=== PATIENT | male | born 1970 | race Caucasian/White ===

== ENCOUNTER → 2017-03-28 | Outpatient (CLI) | payer MEDICAID, SELFPAY | PROVIDERS: Family Provider Family Medicine; Visit Provider Internal Medicine | DX: R06.09 Other forms of dyspnea (principal) | CPT/HCPCS: 71020; 94060; 94620; 94640; 94727; 94729 ==

== ENCOUNTER → 2017-04-28 12:34 | Outpatient (CLI) | payer MEDICAID, SELFPAY ==
[2017-04-28 22:02] LABS: Alanine Aminotransferase 41 U/L (12-78); Albumin Level 4.5 gm/dL (3.4-5.0); Albumin/Globulin Ratio 1.6 (1.1-1.8); Alkaline Phosphatase 96 U/L (46-116); Anion Gap 17.1 mEq/L (5-15); Aspartate Amino Transferase 28 U/L (15-37); Blood Urea Nitrogen 21 mg/dL (7-18); Calcium 9.2 mg/dL (8.5-10.1); Carbon Dioxide 24 mmol/L (21.0-32.0); Chloride 102 mmol/L (98-107); Chol/HDL Ratio 3.9 (1-3.5); Cholesterol 112 mg/dL (140-200); Creatinine,Serum 1.12 mg/dL (0.70-1.30); Estimated Glomerular Filt Rate 70 ml/min (>60); GFR (African American) 85 ML/MIN (>60); Globulin 2.9 gm/dl (1.3-3.2); Glucose 134 mg/dL (74-106); HDL Cholesterol 29 mg/dL (27-67); LDL Cholesterol 43 mg/dL (0-130); Potassium 5.1 mmoL/L (3.5-5.1); Sodium 138 mmol/L (136-145); Total Protein,Serum 7.4 gm/dL (6.4-8.2); Triglycerides 202 mg/dL (30-200); VLDL Cholesterol 40 mg/dL (0-40)
== END ==
PROVIDERS: PCP Family Medicine; Visit Provider Physician Assistant
DX: E78.5 Hyperlipidemia, unspecified (principal); I25.10 Atherosclerotic heart disease of native coronary artery without angina pectoris
CPT/HCPCS: 36415; 80053; 80061

== ENCOUNTER → 2017-05-16 12:44 | Outpatient (POV) | payer MEDICAID, SELFPAY | PROVIDERS: Family Provider Family Medicine; PCP Family Medicine; Visit Provider Internal Medicine | DX: Z00.00 Encounter for general adult medical examination without abnormal findings (principal) ==

== ENCOUNTER → 2017-07-28 09:49 | Outpatient (CLI) | payer MEDICAID, SELFPAY ==
--- NOTE | 2017-07-28 09:54 | MR_ITS ---
MR shoulder LT wo con Ordering Physician: Pipe Herr MD Patient Age: 46 years: Male HISTORY: ITS.REASON: COMPLETE TEAR OF LEFT ROTATOR CUFF Unable to raise arm TECHNIQUE: Without definable multisequence imaging on 1.5 Mili MRI. COMPARISON : Plain films from 10/30/2013 right shoulder FINDINGS . No full-thickness rotator cuff tear evident. Certainly No tendon retraction No significant fluid at subdeltoid subacromial bursa to suggest underlying tiny pinhole RCT either. Supraspinatus Tendon.: Minimal increased signal and critical zone may reflect mild tendinopathy. No definitive tear Acromion with neutral course as extends laterally, but there is mild spurring and enthesopathy I believe beneath the tip of acromion, with narrowing of the subacromial space measuring 5 mm here beneath the tip of acromion Infraspinatus Tendon: Distended appears intact with only minor signal changes at its inferior aspect which could reflect a minor tendinopathy here. Unimpressive. Subscapularis tendon intact. Unremarkable. Biceps tendon appears normal although there is some minimal fluid surrounding the tendon inferior to the bicipital groove..No significant joint effusion to correlate Osseous glenoid intact. Small sclerotic bone island of believe at the inferior aspect of the glenoid neck not of significance. Survey images of anterior and posterior glenoid labrum show no discrete abnormalities. AC joint with only very minor arthropathy suggested . IMPRESSION---------\ 1. no rotator cuff tear] 2. Perhaps mild tendinopathy at the bursal aspect of supraspinatus tendon and possibly infraspinatus 3. There is narrowed subacromial space beneath the acromion which could contribute to impingement symptoms 4. Slight increased fluid along the biceps tendon could reflect some minor inflammation here possible mild & biceps tendinopathy.. Biceps Tendon itself however appears normal with no tear or disruption
== END ==
PROVIDERS: Family Provider Family Medicine; PCP Family Medicine; Visit Provider Family Medicine
DX: M75.122 Complete rotator cuff tear or rupture of left shoulder, not specified as traumatic (principal)
CPT/HCPCS: 73221

== ENCOUNTER → 2017-08-14 07:20 | Outpatient (CLI) | payer MEDICAID, SELFPAY ==
--- NOTE | 2017-08-14 07:28 | NM_ITS ---
CARDIOLITE SPECT MYOCARDIAL PERFUSION SCAN, REST AND STRESS: EXERCISE STRESS [facility] REVIEW QGS EF AND WALL MOTION EVALUATION: QPS - PERFUSION EVALUATION HISTORY: CAD, ANGINA DOSE: 10.06 mCi technetium 99m mibi intravenously at rest followed by 31.2 mCi technetium 99m mibi following the intravenous ministration of 0.4 mg of Lexiscan. Resting blood pressure is 117/71. Stress blood pressure 129/75. FINDINGS: Ejection fraction is calculated to be 59. Uniform myocardial activity at both stress and rest gated images calculated ejection fraction of 59% with normal wall motion IMPRESSION: No scintigraphic evidence of Lexiscan-induced myocardial ischemia. Normal ejection fraction normal wall motion
--- NOTE | 2017-08-14 08:50 | HMH.ITSHM ---
GABAPENTIN CYCLOBEZAPN GLYBICIDE JARDIANCE EZETIMIBE METFORMIN ISOSORB LEVOTHYROXINE ASPIRIN PLAVIX PANTOPRAZOLE BISOPRLOL LISINOPRIL ALBETEROL CHANTIX PERCOCET
== END ==
PROVIDERS: Family Provider Family Medicine; PCP Family Medicine; Visit Provider Physician Assistant
DX: R07.9 Chest pain, unspecified (principal); I25.10 Atherosclerotic heart disease of native coronary artery without angina pectoris
CPT/HCPCS: 78452; 93017; A9502; J2785

== ENCOUNTER → 2017-11-21 13:44 | Outpatient (CLI) | payer MEDICAID, SELFPAY ==
--- NOTE | 2017-11-21 | CI_ITS ---
Cerebrovascular Exam Indications: 785.9 Bruit. IMPRESSIONS 1. The bilateral subclavian arteries reveal no evidence of significant stenosis. 2. Study suggests less than 20% stenosis involving the right internal carotid artery. 3. Study suggests 20-49% stenosis involving the left internal carotid artery. No change from the study of 26-Oct-2016. History: Risk factors: Current tobacco use. Hypertension. Hyperlipidemia. Carotid duplex study. Complete study and Doppler flow study including spectral analysis, color and salguero scale imaging. Height: Height: 172.7cm. Height: 68in. Weight: Weight: 88.5kg. Weight: 194.6lb. Body mass index: BMI: 29.6kg/m^2. Body surface area: BSA: 2.08m^2. Location: Vascular laboratory. Patient status: Outpatient. Tables: Arterial flow: + +--------+--------+ Location V sys V ed + +--------+--------+ Right CCA - proximal 77.8cm/s 18.1cm/s + +--------+--------+ Right CCA - distal 78.6cm/s 22cm/s + +--------+--------+ Right ECA 93.5cm/s -------- + +--------+--------+ Right ICA - proximal 91.9cm/s 31.4cm/s + +--------+--------+ Right ICA - mid 80.1cm/s 28.3cm/s + +--------+--------+ Right ICA - distal 73.9cm/s 27.5cm/s + +--------+--------+ Right vertebral 40.1cm/s -------- + +--------+--------+ Left CCA - proximal 98.2cm/s 26.7cm/s + +--------+--------+ Left CCA - distal 103cm/s 36.9cm/s + +--------+--------+ Left ECA 107cm/s -------- + +--------+--------+ Left ICA - proximal 105cm/s 40.1cm/s + +--------+--------+ Left ICA - mid 104cm/s 33.8cm/s + +--------+--------+ Left ICA - distal 84.1cm/s 33.8cm/s + +--------+--------+ Left vertebral 46.4cm/s -------- + +--------+--------+ Velocity ratios: + + + + + + Right, V sys Right, V ed Left, V sys Left, V ed + + + + + + Max ICA/dist CCA 1.17 1.43 1.02 1.09 + + + + + + (Report amended ) Electronically signed by: Maximilian Bowman [id number]
== END ==
PROVIDERS: Family Provider Family Medicine; PCP Family Medicine; Visit Provider Physician Assistant
DX: I65.23 Occlusion and stenosis of bilateral carotid arteries (principal); I25.10 Atherosclerotic heart disease of native coronary artery without angina pectoris; I10 Essential (primary) hypertension
CPT/HCPCS: 93880

== ENCOUNTER 2019-04-27 21:05 | Observation (INO) ==
--- NOTE | 2019-04-27 21:08 | Emergency Department Note ---
ED Disposition Clinical Impression: Unstable angina Disposition: Admitted as Observation Condition on Discharge: Good - Critical Care Critical Care Time: No Attestation: On , the high probability of a clinically significant, sudden or life threatening deterioration of the following system(s) required my full and direct attention, intervention and personal management. The time I documented below is in addition to time spent performing reported procedures but includes the following listed in this critical care notation. Medical Decision Making - [place] Inquiry Pt receiving controlled substance: No Vital Signs: 04/27/19 21:10 04/27/19 21:32 Temperature 98.2 F Temperature Source Oral Pulse Rate [Right] 94 H 90 Respiratory Rate 18 12 Blood Pressure [Right Arm] 133/86 117/80 Blood Pressure Mean [Right Arm] 101 92 Blood Pressure Source [Right Arm] Automatic Cuff Blood Pressure Position [Right Arm] Supine 02 Sat by Pulse Oximetry 96 98 Oxygen Delivery Method Room Air Room Air - Lab Data Lab Results 04/27/19 21:05: WBC 12.1 H, RBC 5.75, Hgb 15.7, Hct 49.0, MCV 85.2, MCH 27.3, MCHC 32.0, RDW 13.3, Plt Count 255, MPV 8.8, Neut % (Auto) 65.9, Lymph % (Auto) 22.3, [place] % (Auto) 4.9, Eos % (Auto) 5.7, Baso % (Auto) 1.2, Neut # (Auto) 7.9 H, Lymph # (Auto) 2.7, [place] # (Auto) 0.6, Eos # (Auto) 0.7 H, Baso # (Auto) 0.2 04/27/19 21:05: Sodium 138, Potassium 4.7, Chloride 100, Carbon Dioxide 26, Anion Gap 16.7 H, BUN 17, Creatinine 1.19, Estimated Creat Clear 84, Estimated GFR 65, Est GFR ( Amer) 79, Glucose 176 H, Calcium 9.6, Troponin I < 0.02 Result diagrams: 04/27/19 21:05 04/27/19 21:05 Orders (Tests/Meds): ED MEDICATIONS Generic Name Dose Route Start Last Admin Trade Name Freq PRN Reason Stop Dose Admin Nitroglycerin 0.4 mg 04/27/19 21:07 04/27/19 21:31 Nitrostat 0.4mg Sl Tablet SL 05/27/19 21:06 1 tab Q5MINP PRN Administration Chest Pain Discontinued Medications Generic Name Dose Route Start Last Admin Trade Name Freq PRN Reason Stop Dose Admin Aspirin 243 mg 04/27/19 21:07 04/27/19 21:31 Aspirin 81mg Chewable Tablet PO 04/27/19 21:08 243 mg ONCE ONE Administration Nitroglycerin 1 gm 04/27/19 22:49 04/27/19 22:51 Nitroglycerin 1 Inch Oint Udp TD 04/27/19 22:50 1 gm ONCE ONE Administration ORDERS Category Date Time Status XR chest 2V Stat Exams 04/27/19 21:07 Taken Troponin I Q3H Lab 04/28/19 00:15 Ordered Troponin I Q3H Lab 04/28/19 03:15 Ordered - Radiology Data #1 Image(s): Chest Image Reviewed: Yes I reviewed the patient's radiology image Preliminary Findings: Normal/NAD - ECG Data Tracing #1 EKG interpreted by Brandon Harris MD: Rhythm: sinus Rate: 87 Taft: normal Ectopy: none Conduction: normal ST Segment Changes: none T Wave Changes: none Q Waves: none No evidence of acute ischemia or injury Normal electrocardiogram - Physician Consults Physician Consulted: Jayde Time: 22:35 Reason -: Cardiology Eval/Care Comment/Response: Recommends admission Additional Consult: Dr. Reynaldo louise [facility] [place] Time: 22:53 Reason -: Admission Comment/Response: Agrees to admit the patient to the hospital. We discussed the patient's clinical information, including history, exam, laboratory and radiology results and ED course. Per hospital procedure, I will write temporary bridge inpatient orders on the patient. Specific orders requested by the admitting physician: Serial cardiac enzymes Medical Decision Narrative: prior lexiscan stress: FINDINGS: Ejection fraction is calculated to be 59. Uniform myocardial activity at both stress and rest gated images calculated ejection fraction of 59% with normal wall motion IMPRESSION: No scintigraphic evidence of Lexiscan-induced myocardial ischemia. Normal ejection fraction normal wall motion Dictated By: Eddie Donohue MD Signed By: <Electronically signed by Eddie Donohue MD in OV> 08/16/17 1109 General Adult HPI - General Stated complaint: Chest Pain Time Seen by Provider: 04/27/19 21:49 - History of Present Illness HPI narrative: Complains of episodic chest pain for 1 week. Says that he has had a pressure sensation in his chest that usually lasts about 30 minutes. He had it on Monday, Monday, and Monday, but not Monday, Monday, or . He had an episode yesterday and today. Associated with shortness of breath, nausea, diaphoresis and fatigue. Currently says he is discomfort free, although he had some mild pain on arrival which is now gone. He says that he had multiple cardiac stents placed at [facility] about 5 years ago. Review of records shows that he had a non-ST elevation [place] and three-vessel cardiac disease at that time, 2014. He thinks he had a repeat heart cath a couple of years ago at [facility]. He is a smoker. He has diabetes and hyperlipidemia but denies hypertension. He says he is compliant with his medications. - Related Data Home Medications Medication Instructions Recorded Confirmed Clopidogrel Bisulfate [Plavix 75mg 75 mg PO DAILY 04/27/19 04/27/19 Tab] Cyclobenzaprine HCl 10 mg PO HS 04/27/19 04/27/19 [Cyclobenzaprine 10mg Tab] Duloxetine HCl 30 mg PO HS 04/27/19 04/27/19 Empagliflozin [Jardiance] 10 mg PO HS 04/27/19 04/27/19 Ezetimibe 10 mg PO DAILY 04/27/19 04/27/19 Gabapentin 800 mg PO TID 04/27/19 04/27/19 Isosorbide Mononitrate [Isosorbide 120 mg PO DAILY 04/27/19 04/27/19 Mononitrate ER] Levothyroxine Sodium 125 mcg PO DAILY 04/27/19 04/27/19 [Levothyroxine 125mcg (0.125mg) Tab] Metformin HCl [Metformin 1000mg 1,000 mg PO BID 04/27/19 04/27/19 Tablets] Oxycodone HCl/Acetaminophen 1 tab PO QID 04/27/19 04/27/19 [Percocet 10-325 mg Tablet] Pantoprazole Sodium [Protonix 40mg 40 mg PO DAILY 04/27/19 04/27/19 tablet] Rosuvastatin Calcium 40 mg PO HS 04/27/19 04/27/19 bisoproloL fumarate [Bisoprolol 5 mg PO DAILY 04/27/19 04/27/19 Fumarate] glyBURIDE [Diabeta 5mg tablet] 5 mg PO BID 04/27/19 04/27/19 lisinopriL [Lisinopril 2.5mg Tab] 2.5 mg PO HS 04/27/19 04/27/19 Allergies Allergy/AdvReac Type Severity Reaction Status Date / Time No Known Allergies Allergy Unverified 03/21/17 14:27 [facility] History - Hepatitis A Screen Attestation statement:: This patient has been screened for Hepatitis A risk factors. I have reviewed the patient's past medical history: Yes ROS Obtained: Yes All systems reviewed & no additional complaints - Constitutional Constitutional: Reports fatigue, Denies fever(s) - Cardiovascular Cardiovascular: Reports chest pain, Reports diaphoresis - Respiratory Respiratory: Yes dyspnea - Gastrointestinal Gastrointestingal: Reports: nausea Physical Exam - General General appearance: alert, in no apparent distress - Head Head exam: atraumatic, normocephalic - Eye Eye exam: Present: normal appearance, EOMI - ENT ENT exam: Present: mucous membranes moist - Neck Neck exam: Present: normal inspection, trachea midline - Chest Chest inspection: Present: normal inspection, symmetric chest wall rise - Respiratory Respiratory exam: Present: normal lung sounds bilaterally. Absent: respiratory distress - Cardiovascular Cardiovascular exam: Present: regular rate, normal rhythm, normal heart sounds - Abdominal Exam Abdominal exam: Present: soft, distention, tenderness. Absent: normal bowel sounds - Extremities Exam Extremities exam: Present: normal inspection, other (Normal peripheral pulses). Absent: pedal edema, calf tenderness - Neurological Exam Neurological exam: Present: alert, oriented X3 - Psychiatric Psychiatric exam: Present: normal affect, normal mood - Skin Skin exam: Present: warm, dry
[2019-04-27 21:29] LABS: Basophils # 0.2 K/mm3 (0-0.2); Basophils % 1.2 % (0.1-2.0); Eosinophils # 0.7 K/mm3 (0.0-0.4); Eosinophils % 5.7 % (0.1-12.0); Hemoglobin 15.7 g/dL (14.1-18.0); Lymphocytes # 2.7 K/mm3 (0.7-4.5); Lymphocytes % 22.3 % (10-50); Mean Corpuscular Volume 85.2 fl (80-94); Mean Platelet Volume 8.8 fl (7.4-10.4); Monocytes # 0.6 K/mm3 (0.1-1.0); Monocytes % 4.9 % (1.7-9.3); Neutrophils # 7.9 K/mm3 (1.8-7.8); Neutrophils % 65.9 % (37.0-80.0); Platelet Count 255 K/mm3 (142-424); Red Blood Count 5.75 M/mm3 (4.60-6.20); Red Cell Distribution Width 13.3 % (11.5-17.5); White Blood Count 12.1 K/mm3 (4.8-10.8)
[2019-04-27 21:40] LABS: Blood Urea Nitrogen 17 mg/dL (7-18); Calcium 9.6 mg/dL (8.5-10.1); Carbon Dioxide 26 mmol/L (21.0-32.0); Chloride 100 mmol/L (98-107); Glucose 176 mg/dL (74-106)
[2019-04-27 21:50] LABS: Anion Gap 16.7 mEq/L (5-15); Sodium 138 mmol/L (136-145)
--- NOTE | 2019-04-28 08:49 | History & Physical Report ---
*Admission Date: 04/28/19 *Chief complaint: Accelerating angina *History of present illness: Complains of episodic chest pain for 1 week. Says that he has had a pressure sensation in his chest that usually lasts about 30 minutes. He had it on Monday, Monday, and Monday, but not Monday, Monday, or . He had an episode yesterday and today. Associated with shortness of breath, nausea, diaphoresis and fatigue. Currently says he is discomfort free, although he had some mild pain on arrival which is now gone. He says that he had multiple cardiac stents placed at [facility] about 5 years ago. Review of records shows that he had a non-ST elevation [place] and three-vessel cardiac disease at that time, 2014. He thinks he had a repeat heart cath a couple of years ago at [facility]. He is a smoker. He has diabetes and hyperlipidemia but denies hypertension. He says he is compliant with his medications. [facility] History I have reviewed the patient's past medical history: Yes Medical History: Reports:: Diabetes Mellitus Type 2, Myocardial Infarction Denies:: Diabetes Mellitus Type 1, Internal Pacemaker *Have you ever received a pneumonia vaccine?: Yes (unknown when) *Have you received a flu vaccine this season?: Yes Other Medical History: Reports: Thyroid Disease Other Surgeries: Yes: Cardiac Catheterization (9 STENTS), Hernia Repair. No: Pacemaker - *Social History Educational Level: Attended Grade School Smoking Status: Current every day smoker Tobacco Type: cigarettes # Packs/Day (cigarettes): 1 Alcohol Intake: never *Occupational Status:: unemployed Household Members: spouse *Travel in the last 8 weeks: None Family Hx:: Coronary Artery Disease, Diabetes, Heart Attack, Hyperlipidemia Review of Systems - Review of Systems Review of systems:: pertinent systems reviewed and negative unless documented below Other than cardiac issues 10 point review of systems negative Meds Home Medications Medication Instructions Recorded Confirmed Type Clopidogrel Bisulfate [Plavix 75mg 75 mg PO DAILY 04/27/19 04/28/19 History Tab] Cyclobenzaprine HCl 10 mg PO HS 04/27/19 04/28/19 History [Cyclobenzaprine 10mg Tab] Duloxetine HCl 30 mg PO HS 04/27/19 04/28/19 History Empagliflozin [Jardiance] 10 mg PO HS 04/27/19 04/28/19 History Ezetimibe 10 mg PO DAILY 04/27/19 04/28/19 History Gabapentin 800 mg PO BID 04/27/19 04/28/19 History Isosorbide Mononitrate [Isosorbide 120 mg PO DAILY 04/27/19 04/28/19 History Mononitrate ER] Levothyroxine Sodium 125 mcg PO DAILY 04/27/19 04/28/19 History [Levothyroxine 125mcg (0.125mg) Tab] Metformin HCl [Metformin 1000mg 1,000 mg PO BID 04/27/19 04/28/19 History Tablets] Oxycodone HCl/Acetaminophen 1 tab PO QID 04/27/19 04/28/19 History [Percocet 10-325 mg Tablet] Pantoprazole Sodium [Protonix 40mg 40 mg PO DAILY 04/27/19 04/28/19 History tablet] Rosuvastatin Calcium 40 mg PO HS 04/27/19 04/28/19 History bisoproloL fumarate [Bisoprolol 5 mg PO DAILY 04/27/19 04/28/19 History Fumarate] glyBURIDE [Diabeta 5mg tablet] 5 mg PO BID 04/27/19 04/28/19 History lisinopriL [Lisinopril 2.5mg Tab] 2.5 mg PO HS 04/27/19 04/28/19 History Nitroglycerin 0.4 mg SL NEEDED PRN 04/28/19 04/28/19 History Allergies Allergy/AdvReac Type Severity Reaction Status Date / Time No Known Allergies Allergy Unverified 03/21/17 14:27 Exam Vital signs and Labs for Last 24 Hours: Temp Pulse Resp BP Pulse Ox 98.1 F 67 16 128/79 96 04/28/19 08:00 04/28/19 08:00 04/28/19 08:00 04/28/19 08:00 04/28/19 08:00 Laboratory Results - last 24 hr 04/27/19 21:05: WBC 12.1 H, RBC 5.75, Hgb 15.7, Hct 49.0, MCV 85.2, MCH 27.3, MCHC 32.0, RDW 13.3, Plt Count 255, MPV 8.8, Neut % (Auto) 65.9, Lymph % (Auto) 22.3, [place] % (Auto) 4.9, Eos % (Auto) 5.7, Baso % (Auto) 1.2, Neut # (Auto) 7.9 H, Lymph # (Auto) 2.7, [place] # (Auto) 0.6, Eos # (Auto) 0.7 H, Baso # (Auto) 0.2 04/27/19 21:05: Sodium 138, Potassium 4.7, Chloride 100, Carbon Dioxide 26, Anion Gap 16.7 H, BUN 17, Creatinine 1.19, Estimated Creat Clear 84, Estimated GFR 65, Est GFR ( Amer) 79, Glucose 176 H, Calcium 9.6, Troponin I < 0.02 04/28/19 00:20: Troponin I < 0.02 04/28/19 03:20: Troponin I < 0.02 04/28/19 05:22: POC Glucose 208 H I & O for Last 24 hours: Intake & Output 04/25/19 04/26/19 04/27/19 04/28/19 11:59 11:59 11:59 11:59 Intake Total 360 / 360 Balance 360 / 360 Weight 179 lb 2 oz - Constitutional no acute distress, average body habitus - *Routine HEENT Exam Head: Present: normocephalic Eye: Present: EOMI, PERRL ENT: Present: mucous membranes moist - *Routine Neck Exam Present: supple. Absent: lymphadenopathy - *Routine Respiratory Exam Present: CTA bilaterally - *Routine Cardiovascular Exam Present: RRR - *Routine Abdominal Exam Present: soft, normoactive bowel sounds. Absent: tenderness Comments: Ventral hernia noted, no tenderness - *Routine Extremities Exam Absent: cyanosis, clubbing, edema - *Routine Skin Exam Present: warm. Absent: rash - *Routine Neurological Exam Present: alert, oriented X3 Assessment and Plan (1) Diabetes mellitus type 2, noninsulin dependent Current visit: Yes Status: Acute Category: Medical Code(s): E11.9 - Type 2 diabetes mellitus without complications Sliding scale insulin while in hospital (2) Hypertension, essential Current visit: Yes Status: Acute Category: Medical Code(s): I10 - Essential (primary) hypertension Currently controlled, continue beta-sarath (3) Personal history of nicotine dependence Current visit: Yes Status: Acute Category: Medical Code(s): Z87.891 - Personal history of nicotine dependence Noncompliant with cigarette smoking advised. Nicotine patch. (4) Unstable angina Current visit: Yes Status: Acute Category: Medical Code(s): I20.0 - Unstable angina Significant risk factors for recurrent coronary disease. Agree with admission. Cardiology consult
--- NOTE | 2019-04-28 09:07 | Electrocardiograph Report ---
APPROVED REPORT Exam: Resting ECG HR:87 bpm ECG Measurements Heart Rate 87 AXES DE 148 P 72 QRSd 88 QRS 40 QT 342 T60 QTc 411 <Conclusion> Normal sinus rhythm Normal ECG Electronically signed by : Pipe Jacobs, 04/28/2019 09:07:23
--- NOTE | 2019-04-29 07:11 | Progress Note ---
Internal Medicine - PN: Subj *Date: 04/29/19 *Time: 07:10 Interval history: Patient feels well this morning. He has not had any further chest pain since admission and application of nitroglycerin ointment. Exam Vital signs and Labs for Last 24 Hours: Temp Pulse Resp BP Pulse Ox 97.5 F L 77 16 114/72 94 L 04/29/19 04:00 04/29/19 04:00 04/29/19 04:00 04/29/19 04:00 04/29/19 04:00 Laboratory Results - last 24 hr 04/28/19 10:50: POC Glucose 95 04/28/19 16:19: POC Glucose 218 H 04/28/19 20:36: POC Glucose 232 H 04/29/19 05:51: POC Glucose 125 H I & O for Last 24 hours: Intake & Output 04/26/19 04/27/19 04/28/19 04/29/19 11:59 11:59 11:59 11:59 Intake Total 360 / 360 360 / 360 Output Total 1000 / 1000 Balance 360 / 360 -640 / -640 Weight 179 lb 2 oz 173 lb 8 oz - Constitutional no acute distress - *Routine Respiratory Exam Present: CTA bilaterally - *Routine Cardiovascular Exam Present: RRR, Normal S1, Normal S2 Assessment and Plan (1) Diabetes mellitus type 2, noninsulin dependent Current visit: Yes Status: Acute Category: Medical Code(s): E11.9 - Type 2 diabetes mellitus without complications (2) Hypertension, essential Current visit: Yes Status: Acute Category: Medical Code(s): I10 - Essential (primary) hypertension (3) Personal history of nicotine dependence Current visit: Yes Status: Acute Category: Medical Code(s): Z87.891 - Personal history of nicotine dependence (4) Unstable angina Current visit: Yes Status: Acute Category: Medical Code(s): I20.0 - Unstable angina - Assessment and plan all Dx Assessment and Plan for all problems:: Cardiology consult today
--- NOTE | 2019-04-29 07:29 | Pharmacy Consult Notes ---
[facility] Pharmacy VTE Monitoring - Patient Demographics Admission date: 04/27/19 Report Date: 04/29/19 Time: 07:29 Allergies/Adverse Reactions: Patient Allergies No Known Allergies Allergy (Unverified 03/21/17 14:27) Height: 1.7 m Weight: 78.698 kg Patient Problems: Current Active Problems Unstable angina (Acute) Diabetes mellitus type 2, noninsulin dependent (Acute) Hypertension, essential (Acute) Personal history of nicotine dependence (Acute) - VTE Risk Labs: VTE Related Lab Results Hgb 15.7 g/dL (14.1-18.0) 04/27/19 21:05 Hct 49.0 % (42.0-52.0) 04/27/19 21:05 Plt Count 255 K/mm3 (142-424) 04/27/19 21:05 BUN 17 mg/dL (7-18) 04/27/19 21:05 Creatinine 1.19 mg/dL (0.70-1.30) 04/27/19 21:05 Estimated Creat Clear 84 mL/min (50-200) 04/27/19 21:05 - Prophylaxis VTE Prophylaxis Ordered?: Yes Types of VTE Prophylaxis: TEDS Knee High Location of Applied Device: Bilateral Lower Extremeties, Refused - VTE Diagnosis Confirmed Treatment or plan recommended: Continue Current Treatment
--- NOTE | 2019-04-29 07:36 | Consult Report ---
History of Present Illness Consult date: 04/29/19 Requesting physician: Pipe Herr Consult reason: chest pain Chief complaint: chest pain Additional Medical History:: 1. CAD A. NSTEMI, 2015, 3 vessel ROBIN (LAD, Cx and RCA) B. C, 2016, stable 2. DM 3. PAD, with history of intervention 4. Partial colectomy due to diverticulosis 5. HTN 6. Hyperlipidemia, on statin 7. Tobacco use, continued History of present illness: Complains of episodic chest pain for 1 week. Says that he has had a pressure sensation in his chest that usually lasts about 30 minutes. He had it on Monday, Monday, and Monday, but not Monday, Monday, or . He had an episode yesterday and today. Associated with shortness of breath, nausea, diaphoresis and fatigue. Currently says he is discomfort free, although he had some mild pain on arrival which is now gone. He says that he had multiple cardiac stents placed at [facility] about 5 years ago. Review of records shows that he had a non-ST elevation [place] and three-vessel cardiac disease at that time, 2014. He thinks he had a repeat heart cath a couple of years ago at [facility]. He is a smoker. He has diabetes and hyperlipidemia but denies hypertension. He says he is compliant with his medications. The above per Dr. Jacobs Cardiology consulted for evaluation. Troponins normal X 3. No further chest pain since admission but has been on NTG paste since admission. Last seen in our office in 2017/2017 but has been seeing [facility]. No cardiac testing during that time. He continues to smoke 1-1.[address] [facility] History Medical History: Reports:: Diabetes Mellitus Type 2, Myocardial Infarction Denies:: Diabetes Mellitus Type 1, Internal Pacemaker *Have you ever received a pneumonia vaccine?: Yes (unknown when) *Have you received a flu vaccine this season?: Yes Other Medical History: Reports: Thyroid Disease Other Surgeries: Yes: Cardiac Catheterization (9 STENTS), Hernia Repair. No: Pacemaker - *Social History Educational Level: Attended Grade School Smoking Status: Current every day smoker Tobacco Type: cigarettes # Packs/Day (cigarettes): 1 Alcohol Intake: never *Occupational Status:: unemployed Household Members: spouse *Travel in the last 8 weeks: None Family Hx:: Coronary Artery Disease, Diabetes, Heart Attack, Hyperlipidemia Meds Home Medications Medication Instructions Recorded Confirmed Type Clopidogrel Bisulfate [Plavix 75mg 75 mg PO DAILY 04/27/19 04/28/19 History Tab] Cyclobenzaprine HCl 10 mg PO HS 04/27/19 04/28/19 History [Cyclobenzaprine 10mg Tab] Duloxetine HCl 30 mg PO HS 04/27/19 04/28/19 History Empagliflozin [Jardiance] 10 mg PO HS 04/27/19 04/28/19 History Ezetimibe 10 mg PO DAILY 04/27/19 04/28/19 History Gabapentin 800 mg PO BID 04/27/19 04/28/19 History Isosorbide Mononitrate [Isosorbide 120 mg PO DAILY 04/27/19 04/28/19 History Mononitrate ER] Levothyroxine Sodium 125 mcg PO DAILY 04/27/19 04/28/19 History [Levothyroxine 125mcg (0.125mg) Tab] Metformin HCl [Metformin 1000mg 1,000 mg PO BID 04/27/19 04/28/19 History Tablets] Oxycodone HCl/Acetaminophen 1 tab PO QID 04/27/19 04/28/19 History [Percocet 10-325 mg Tablet] Pantoprazole Sodium [Protonix 40mg 40 mg PO DAILY 04/27/19 04/28/19 History tablet] Rosuvastatin Calcium 40 mg PO HS 04/27/19 04/28/19 History bisoproloL fumarate [Bisoprolol 5 mg PO DAILY 04/27/19 04/28/19 History Fumarate] glyBURIDE [Diabeta 5mg tablet] 5 mg PO BID 04/27/19 04/28/19 History lisinopriL [Lisinopril 2.5mg Tab] 2.5 mg PO HS 04/27/19 04/28/19 History Nitroglycerin 0.4 mg SL NEEDED PRN 04/28/19 04/28/19 History Allergies Allergy/AdvReac Type Severity Reaction Status Date / Time No Known Allergies Allergy Unverified 03/21/17 14:27 Review of Systems - Review of Systems Review of systems:: pertinent systems reviewed and negative unless documented below - *Cardiovascular Reports chest pain, Reports shortness of breath - *Respiratory Reports shortness of breath - *Gastrointestinal Reports nausea, Denies abdominal pain, Denies vomiting - *Genitourinary Denies blood in urine - *Musculoskeletal Denies joint pain, Denies back pain - *Neurologic Denies headache(s), Denies fainting Exam Vital signs and Labs for Last 24 Hours: Temp Pulse Resp BP Pulse Ox 97.5 F L 77 16 114/72 94 L 04/29/19 04:00 04/29/19 04:00 04/29/19 04:00 04/29/19 04:00 04/29/19 04:00 Laboratory Results - last 24 hr 04/28/19 10:50: POC Glucose 95 04/28/19 16:19: POC Glucose 218 H 04/28/19 20:36: POC Glucose 232 H 04/29/19 05:51: POC Glucose 125 H I & O for Last 24 hours: Intake & Output 04/26/19 04/27/19 04/28/19 04/29/19 11:59 11:59 11:59 11:59 Intake Total 360 / 360 360 / 360 Output Total 1000 / 1000 Balance 360 / 360 -640 / -640 Weight 179 lb 2 oz 173 lb 8 oz - *Routine HEENT Exam Head: Present: normocephalic Eye: Present: EOMI, PERRL ENT: Present: mucous membranes moist - *Routine Neck Exam Present: supple. Absent: JVD, carotid bruit - *Routine Respiratory Exam Present: CTA bilaterally. Absent: accessory muscle use, rales, rhonchi, wheezes - *Routine Cardiovascular Exam Present: RRR. Absent: murmur, gallop, rubs - *Routine Abdominal Exam Present: soft. Absent: tenderness, distended, guarding - *Routine Extremities Exam Absent: edema, calf tenderness - *Routine Neurological Exam Present: alert, oriented X3, moving all extremities Assessment and Plan (1) Unstable angina Current visit: Yes Status: Acute Category: Medical Code(s): I20.0 - Unstable angina (2) Diabetes mellitus type 2, noninsulin dependent Current visit: Yes Status: Acute Category: Medical Code(s): E11.9 - Type 2 diabetes mellitus without complications (3) Hypertension, essential Current visit: Yes Status: Acute Category: Medical Code(s): I10 - Essential (primary) hypertension (4) Personal history of nicotine dependence Current visit: Yes Status: Acute Category: Medical Code(s): Z87.891 - Personal history of nicotine dependence - Assessment and plan all Dx Assessment and Plan for all problems:: 1. Chest pain, recurrent over the last several days. Concern for UAP in this long standing diabetic, smoker with history of normal stress test prior to NSTEMI and 3 vessel CAD requiring multiple stents. Pt with high pre-test likelihood for recurrent CAD and would recommend proceeding with LHC. Risks, benefits and procedure explained to pt. He agrees to proceed. Continue ASA and plavix, bisoprolol, lisinopril and statin. Further recommendations to follow.
[2019-04-29 08:48] LABS: Basophils # 0.1 K/mm3 (0-0.2); Basophils % 1.1 % (0.1-2.0); Eosinophils # 0.8 K/mm3 (0.0-0.4); Eosinophils % 7.3 % (0.1-12.0); Hematocrit 48.8 % (42.0-52.0); Hemoglobin 15.8 g/dL (14.1-18.0); Lymphocytes # 2.4 K/mm3 (0.7-4.5); Lymphocytes % 23.4 % (10-50); Mean Corpuscular HGB Conc 32.5 g/dL (31.8-35.4); Mean Corpuscular Volume 84.8 fl (80-94); Mean Platelet Volume 8.6 fl (7.4-10.4); Monocytes # 0.7 K/mm3 (0.1-1.0); Monocytes % 6.3 % (1.7-9.3); Neutrophils # 6.4 K/mm3 (1.8-7.8); Platelet Count 233 K/mm3 (142-424); Red Blood Count 5.75 M/mm3 (4.60-6.20); Red Cell Distribution Width 13.4 % (11.5-17.5); White Blood Count 10.4 K/mm3 (4.8-10.8)
[2019-04-29 08:51] LABS: Anion Gap 15.5 mEq/L (5-15); Calcium 9.4 mg/dL (8.5-10.1)
--- NOTE | 2019-04-29 15:33 | Discharge Summary ---
General - General Admission date:: 04/27/19 Discharge date: 04/29/19 HPI HPI: Complains of episodic chest pain for 1 week. Says that he has had a pressure sensation in his chest that usually lasts about 30 minutes. He had it on Monday, Monday, and Monday, but not Monday, Monday, or . He had an episode yesterday and today. Associated with shortness of breath, nausea, diaphoresis and fatigue. Currently says he is discomfort free, although he had some mild pain on arrival which is now gone. He says that he had multiple cardiac stents placed at [facility] about 5 years ago. Review of records shows that he had a non-ST elevation [place] and three-vessel cardiac disease at that time, 2014. He thinks he had a repeat heart cath a couple of years ago at [facility]. He is a smoker. He has diabetes and hyperlipidemia but denies hypertension. He says he is compliant with his medications. Hospital Course Hospital Course: Tierra was admitted and ruled out for TX. Cardiology was consultteda nd patient was taken to the clam bed laborer on 04/29. Findings are as follows: Widely patent coronary stents as described above with one moderate stenosis in a small obtuse marginal artery too small for stenting Normal ejection fraction Normal left ventricular end-diastolic pressure PLAN 1. Medical management Patient was discharged to home on the evening of 04/29 and will follow up in the office in 1 week. Objective Vital signs: Temp Pulse Resp BP Pulse Ox 97.5 F L 62 16 101/62 L 96 04/29/19 14:45 04/29/19 14:45 04/29/19 14:45 04/29/19 14:45 04/29/19 14:45 Results Labs on day of discharge: Labs from last 24 hours 04/29/19 04/29/19 04/29/19 08:37 08:37 05:51 WBC 10.4 RBC 5.75 Hgb 15.8 Hct 48.8 MCV 84.8 MCH 27.5 MCHC 32.5 RDW 13.4 Plt Count 233 MPV 8.6 Neut % (Auto) 62.0 Lymph % (Auto) 23.4 Blair % (Auto) 6.3 Eos % (Auto) 7.3 Baso % (Auto) 1.1 Neut # (Auto) 6.4 Lymph # (Auto) 2.4 [place] # (Auto) 0.7 Eos # (Auto) 0.8 H Baso # (Auto) 0.1 Sodium 141 Potassium 4.5 Chloride 104 Carbon Dioxide 26 Anion Gap 15.5 H BUN 22 H D Creatinine 0.97 Estimated Creat Clear 103 Estimated GFR 82 Est GFR ( Amer) 100 D Glucose 127 H POC Glucose 125 H Calcium 9.4 04/28/19 04/28/19 20:36 16:19 WBC RBC Hgb Hct MCV MCH MCHC RDW Plt Count MPV Neut % (Auto) Lymph % (Auto) [place] % (Auto) Eos % (Auto) Baso % (Auto) Neut # (Auto) Lymph # (Auto) [place] # (Auto) Eos # (Auto) Baso # (Auto) Sodium Potassium Chloride Carbon Dioxide Anion Gap BUN Creatinine Estimated Creat Clear Estimated GFR Est GFR ( Amer) Glucose POC Glucose 232 H 218 H Calcium DS: Diagnosis - Discharge Diagnosis (1) Unstable angina Status: Acute (2) Diabetes mellitus type 2, noninsulin dependent Status: Acute (3) Hypertension, essential Status: Acute (4) Personal history of nicotine dependence Status: Acute Discharge Plan - Patient Discharge Instructions ACTIVITY: Continue current activity DIET: continue same diet Patient Instructions: Angina, Electrocardiogram, Heart-Healthy Diet, DI for Angina, Heart Healthy Physical Activity, DI for Chest Pain - Follow up Plan Disposition: Home, Self-Intermediate Medications: Home Medications Medication Instructions Recorded Confirmed Type Clopidogrel Bisulfate [Plavix 75mg 75 mg PO DAILY 04/27/19 04/28/19 History Tab] Cyclobenzaprine HCl 10 mg PO HS 04/27/19 04/28/19 History [Cyclobenzaprine 10mg Tab] Duloxetine HCl 30 mg PO HS 04/27/19 04/28/19 History Empagliflozin [Jardiance] 10 mg PO HS 04/27/19 04/28/19 History Ezetimibe 10 mg PO DAILY 04/27/19 04/28/19 History Gabapentin 800 mg PO BID 04/27/19 04/28/19 History Isosorbide Mononitrate [Isosorbide 120 mg PO DAILY 04/27/19 04/28/19 History Mononitrate ER] Levothyroxine Sodium 125 mcg PO DAILY 04/27/19 04/28/19 History [Levothyroxine 125mcg (0.125mg) Tab] Metformin HCl [Metformin 1000mg 1,000 mg PO BID 04/27/19 04/28/19 History Tablets] Oxycodone HCl/Acetaminophen 1 tab PO QID 04/27/19 04/28/19 History [Percocet 10-325 mg Tablet] Pantoprazole Sodium [Protonix 40mg 40 mg PO DAILY 04/27/19 04/28/19 History tablet] Rosuvastatin Calcium 40 mg PO HS 04/27/19 04/28/19 History bisoproloL fumarate [Bisoprolol 5 mg PO DAILY 04/27/19 04/28/19 History Fumarate] glyBURIDE [Diabeta 5mg tablet] 5 mg PO BID 04/27/19 04/28/19 History lisinopriL [Lisinopril 2.5mg Tab] 2.5 mg PO HS 04/27/19 04/28/19 History Nitroglycerin 0.4 mg SL NEEDED PRN 04/28/19 04/28/19 History Aspirin [Aspirin 81mg EC Tab] 81 mg PO DAILY 04/29/19 04/29/19 History Prescriptions/Medication Reconciliation: Continued Oxycodone HCl/Acetaminophen [Percocet 10-325 mg Tablet] 1 tab PO QID Metformin HCl [Metformin 1000mg Tablets] 1,000 mg PO BID Ezetimibe 10 mg PO DAILY Duloxetine HCl 30 mg PO HS Cyclobenzaprine HCl [Cyclobenzaprine 10mg Tab] 10 mg PO HS Clopidogrel Bisulfate [Plavix 75mg Tab] 75 mg PO DAILY bisoproloL fumarate [Bisoprolol Fumarate] 5 mg PO DAILY Nitroglycerin 0.4 mg SL NEEDED PRN PRN Reason: Chest Pain Pantoprazole Sodium [Protonix 40mg tablet] 40 mg PO DAILY Rosuvastatin Calcium 40 mg PO HS lisinopriL [Lisinopril 2.5mg Tab] 2.5 mg PO HS Levothyroxine Sodium [Levothyroxine 125mcg (0.125mg) Tab] 125 mcg PO DAILY Isosorbide Mononitrate [Isosorbide Mononitrate ER] 120 mg PO DAILY glyBURIDE [Diabeta 5mg tablet] 5 mg PO BID Gabapentin 800 mg PO BID Empagliflozin [Jardiance] 10 mg PO HS Aspirin [Aspirin 81mg EC Tab] 81 mg PO DAILY - Problem Reconciliation Problems Reviewed?: Yes
--- NOTE | 2019-04-29 19:29 | Cardiology Report ---
APPROVED REPORT EXAM: Comprehensive 2D, Doppler, and color-flow Echocardiogram Customer Engineer: Luana Jacobson RVT Ht: 5 ft 7 in Wt: 175lbs BSA: 1.91 BP: 114/72 mmHg Indications: CAD, Hyperlipidemia, Hypertension,Angina,Smoker 2D Dimensions LVOT 2.21 cm (M/F) 1.5-2.5 M-Mode Dimensions RVDd 2.85 cm (0.9-2.6)LVDd 4.14 cm (3.5-5.7) LVDs 3.04 cm (3.5-5.7)IVSd 0.76 cm (0.6-1.1) PWd 0.68 cm (0.6-1.1)EF (Teich) 52.30% FS 26.60% EDV (Teich) 75.90 mL ESV (Teich) 36.20 mL LV Diastology E/A Ratio 0.73 Mitral Valve MV A Velocity 56.00 (40-130 cm/s) Left Ventricle Left atrium is mildly enlarged, left ventricle is normal size, mild concentric left ventricular hypertrophy, visually estimated ejection fraction 55% with no regional wall motion abnormality. Grade 1 diastolic dysfunction seen without tissue Doppler evidence of raise left atrial pressure. Right Ventricle Right atrium is normal size, right ventricle is mildly enlarged with normal contractility. Aortic Valve Aortic valve is minimally thickened and fibrosed, there is no aortic stenosis, there is no aortic insufficiency. Mitral Valve Mitral valve is grossly normal, there is mild mitral regurgitation. Tricuspid Valve Tricuspid valve is grossly normal, there is mild tricuspid regurgitation. Tricuspid regurgitation jet velocity is inadequate for calculation of the right ventricular systolic pressure. Pulmonic Valve Pulmonic valve is poorly visualized. Great Vessels Aortic root is normal size. Pericardium No significant pericardial effusion noted. Conclusion 1. Mildly enlarged left atrium, normal left ventricular size, mild concentric left ventricular hypertrophy, visually estimated ejection fraction 55% with no regional wall motion abnormality, grade 1 diastolic dysfunction seen without tissue Doppler evidence of raise left atrial pressure. 2. Mildly enlarged right ventricle with normal contractility. 3. Mild mitral and tricuspid regurgitation. 4. No significant pericardial effusion noted. Electronically signed by : Shaq Hirsch, 04/29/2019 19:29:10
== END 2019-04-29 16:30 | disposition home or self-care (01) ==
LOC: 2ND 21:05 → ER 21:05 → 2ND 23:31
PROVIDERS: ADMIT Internal Medicine Adolescent Medicine; ATTEND Family Medicine
CPT/HCPCS: 36415; 71020; 71046; 80048; 82962; 84484; 85025; 93005; 93306; 93458; 99152; 99284; C1725; C1769; G0378; J1644

== ENCOUNTER → 2019-05-16 08:50 | Outpatient (CLI) | payer OTHER, SELFPAY ==
--- NOTE | 2019-05-16 08:50 | US_ITS ---
PROCEDURE: US ABD. AORTA SCREENING CLINICAL INDICATION: known vincenzo and smoking COMPARISON: No exams were available for comparison FINDINGS: No evidence of aortic aneurysm. There is some plaque present in the abdominal aorta. Proximal common iliacs are unremarkable. IMPRESSION: No evidence of abdominal aortic aneurysm Dictated by: Maximilian Bowman MD 05/16/2019 17:04 Electronically signed by Maximilian Bowman MD in [place] 05/16/2019 17:04
--- NOTE | 2019-05-16 08:50 | CA_ITS ---
APPROVED REPORT Isotope Technologist: Luana Jacobson RVT Laterality: Bilateral Study Quality: Good Indications: carotid bruit Risk Factors Hypertension: Hyperlipidemia Diabetes Smoking Doppler Spectral Velocity Analysis ECA (R) 105.10/8.50 cm/s ECA (L) 91.80/8.20 cm/s dICA (R) 47.00/17.10 cm/s dICA (L) 50.30/21.80 cm/s Willie (R) 68.70/27.60 cm/s Willie (L) 92.90/31.10 cm/s pICA (R) 69.70/19.80 cm/s pICA (L) 87.70/27.90 cm/s dCCA (R) 71.20/18.20 cm/s dCCA (L) 74.60/14.20 cm/s pCCA (R) 97.50/16.50 cm/s pCCA (L) 86.00/17.70 cm/s Vert (R) 39.70/11.50 cm/s Vert (L) 43.70/12.60 cm/s ICA/CCA 0.98 ICA/CCA 1.24 Findings Study suggests less than 20% stenosis of the right internal cartoid artery unchanged from 10/26/16. Study suggests 20-49% stenosis of the left internal cartoid artery unchanged from 10/26/16. Antegrade flow seen bilateral vertebral arteries. Conclusion Study suggests less than 20% stenosis of the right internal cartoid artery unchanged from 10/26/16. Study suggests 20-49% stenosis of the left internal cartoid artery unchanged from 10/26/16. Antegrade flow seen bilateral vertebral arteries. Electronically signed by : Maximilian Bowman MD 05/16/2019 19:49:30
== END ==
PROVIDERS: PCP Family Medicine; Visit Provider Internal Medicine Cardiovascular Disease
DX: I65.23 Occlusion and stenosis of bilateral carotid arteries (principal); R09.89 Other specified symptoms and signs involving the circulatory and respiratory systems; E78.5 Hyperlipidemia, unspecified; F17.200 Nicotine dependence, unspecified, uncomplicated; I10 Essential (primary) hypertension; I25.10 Atherosclerotic heart disease of native coronary artery without angina pectoris; Z13.6 Encounter for screening for cardiovascular disorders
CPT/HCPCS: 76705; 93880

== ENCOUNTER 2019-05-24 09:54 | Observation (INO) ==
--- NOTE | 2019-05-24 11:06 | Pharmacy Consult Notes ---
[facility] Pharmacy VTE Monitoring - Patient Demographics Admission date: 05/24/19 Report Date: 05/24/19 Time: 11:06 Allergies/Adverse Reactions: Patient Allergies No Known Allergies Allergy (Verified 05/09/19 10:30) - Prophylaxis VTE Prophylaxis Ordered?: Yes Types of VTE Prophylaxis: TEDS Knee High Location of Applied Device: Bilateral Lower Extremeties
[2019-05-24 12:10] LABS: Basophils # 0.1 K/mm3 (0-0.2); Basophils % 0.6 % (0.1-2.0); Eosinophils # 0.4 K/mm3 (0.0-0.4); Eosinophils % 3.3 % (0.1-12.0); Hematocrit 47.1 % (42.0-52.0); Hemoglobin 15.3 g/dL (14.1-18.0); Lymphocytes # 2.1 K/mm3 (0.7-4.5); Lymphocytes % 15.6 % (10-50); Mean Corpuscular HGB Conc 32.4 g/dL (31.8-35.4); Mean Corpuscular Volume 83.6 fl (80-94); Mean Platelet Volume 8.4 fl (7.4-10.4); Monocytes # 0.8 K/mm3 (0.1-1.0); Monocytes % 6.2 % (1.7-9.3); Neutrophils % 74.4 % (37.0-80.0); Platelet Count 274 K/mm3 (142-424); Red Blood Count 5.64 M/mm3 (4.60-6.20); Red Cell Distribution Width 14.5 % (11.5-17.5); White Blood Count 13.4 K/mm3 (4.8-10.8)
[2019-05-24 12:16] LABS: Albumin Level 4.3 g/dl (3.5-5.0); Albumin/Globulin Ratio 1.2 (1.1-1.8); Anion Gap 18.4 mEq/L (5-15); Bilirubin,Total 0.9 mg/dl (0.2-1.3); Calcium 9.9 mg/dl (8.4-10.2); Globulin 3.6 g/dL (1.3-3.2); Total Protein,Serum 7.9 g/dl (6.3-8.2)
--- NOTE | 2019-05-24 12:39 | Consult Report ---
*Admission Date: 05/24/19 *Reason for consult:: "Acute cholecystitis" *History of present illness: Patient is a 48-year-old male from [facility] whom I have seen in the past. He did have a sigmoid colon resection with low pelvic anastomosis for refractory recurrent diverticulitis in 2007. He underwent laparoscopic ventral hernia repair in October 2013 with placement of 21 cm [employer]ix [employer] mesh for m ultiple incisional hernias. He states that 5 days ago he began developing abdominal pain and bloating. Pain has been diffusely in the right abdomen. He has had postprandial bloating. He states that he has been unable to tolerate food intake due to the pain. He has been able to maintain liquids. He states that 2 days ago his stated that he may look a little jaundiced. He denies any changes in his bowels. He was seen in his primary care provider's office yesterday and had an ultrasound ordered of the gallbladder for this morning. This was performed and reveals findings consistent with acute cholecystitis. Given the patient's symptomatology and sonographic findings he was admitted for inpatient management and surgical consultation. Of note, the patient does state that he has had several "heart attacks" and has 9 stents placed and is on Plavix. He did however recently undergo heart catheterization by Dr. Donohue. Review of Systems - Review of Systems Review of systems:: pertinent systems reviewed and negative unless documented below [facility] History Medical History: Reports:: Coronary Artery Disease, Diabetes Mellitus Type 2, Hyperlipidemia, Hypertension, MRSA, Myocardial Infarction Denies:: Cancer, Diabetes Mellitus Type 1, Internal Pacemaker *Have you ever received a pneumonia vaccine?: Yes *Have you received a flu vaccine this season?: Yes Other Medical History: Reports: Arthritis, Thyroid Disease Other Surgeries: Yes: Cardiac Catheterization, Hernia Repair. No: Pacemaker Amputation: No Fractures: No - *Social History Educational Level: Attended Grade School Smoking Status: Current every day smoker Tobacco Type: cigarettes # Packs/Day (cigarettes): 1 Alcohol Intake: never *Occupational Status:: employed Housing: house Household Members: spouse *Travel in the last 8 weeks: None Family Hx:: Coronary Artery Disease, Diabetes, Heart Attack, Hyperlipidemia, Hypertension, Thyroid Disorder Meds Home Medications Medication Instructions Recorded Confirmed Type Clopidogrel Bisulfate [Plavix 75mg 75 mg PO DAILY 04/27/19 05/24/19 History Tab] Cyclobenzaprine HCl 10 mg PO HS 04/27/19 05/24/19 History [Cyclobenzaprine 10mg Tab] Duloxetine HCl 30 mg PO HS 04/27/19 05/24/19 History Empagliflozin [Jardiance] 10 mg PO HS 04/27/19 05/24/19 History Ezetimibe 10 mg PO DAILY 04/27/19 05/24/19 History Isosorbide Mononitrate [Isosorbide 120 mg PO DAILY 04/27/19 05/24/19 History Mononitrate ER] Levothyroxine Sodium 125 mcg PO DAILY 04/27/19 05/24/19 History [Levothyroxine 125mcg (0.125mg) Tab] Metformin HCl [Metformin 1000mg 1,000 mg PO BID 04/27/19 05/24/19 History Tablets] Oxycodone HCl/Acetaminophen 1 tab PO QID 04/27/19 05/24/19 History [Percocet 10-325 mg Tablet] Pantoprazole Sodium [Protonix 40mg 40 mg PO DAILY 04/27/19 05/24/19 History tablet] Rosuvastatin Calcium 40 mg PO HS 04/27/19 05/24/19 History bisoproloL fumarate [Bisoprolol 5 mg PO DAILY 04/27/19 05/24/19 History Fumarate] glyBURIDE [Diabeta 5mg tablet] 5 mg PO BID 04/27/19 05/24/19 History lisinopriL [Lisinopril 2.5mg Tab] 2.5 mg PO HS 04/27/19 04/28/19 History Nitroglycerin 0.4 mg SL NEEDED PRN 04/28/19 05/24/19 History Aspirin [Aspirin 81mg EC Tab] 81 mg PO DAILY 04/29/19 05/24/19 History gabapentin 800 mg tablet 800 mg PO TID tab 05/09/19 05/24/19 History Allergies Allergy/AdvReac Type Severity Reaction Status Date / Time No Known Allergies Allergy Verified 05/09/19 10:30 Exam Vital signs and Labs for Last 24 Hours: Temp Pulse Resp BP Pulse Ox 98.1 F 117 H 18 110/80 97 05/24/19 10:46 05/24/19 10:46 05/24/19 10:46 05/24/19 10:46 05/24/19 12:28 Laboratory Results - last 24 hr 05/24/19 12:00: WBC 13.4 H, RBC 5.64, Hgb 15.3, Hct 47.1, MCV 83.6, MCH 27.1, MCHC 32.4, RDW 14.5, Plt Count 274, MPV 8.4, Neut % (Auto) 74.4, Lymph % (Auto) 15.6, [place] % (Auto) 6.2, Eos % (Auto) 3.3, Baso % (Auto) 0.6, Neut # (Auto) 10.0 H, Lymph # (Auto) 2.1, [place] # (Auto) 0.8, Eos # (Auto) 0.4, Baso # (Auto) 0.1 05/24/19 12:00: Sodium 131 L, Potassium 4.4, Chloride 97 L, Carbon Dioxide 20 L, Anion Gap 18.4 H, BUN 24 H, Creatinine 1.20, Estimated Creat Clear 78, Estimated GFR 64, Est GFR ( Amer) 78, Glucose 183 H, Calcium 9.9, Total Bilirubin 0.9, AST 115 H, ALT 133 H, Alkaline Phosphatase 129 H, Total Protein 7.9, Albumin 4.3, Globulin 3.6 H, Albumin/Globulin Ratio 1.2, Amylase 61 05/24/19 12:00: Lipase 133 I & O for Last 24 hours: Intake & Output 05/22/19 05/23/19 05/24/19 05/25/19 11:59 11:59 11:59 11:59 Weight 162 lb 6 oz - *Routine HEENT Exam Head: Present: normocephalic Eye: Present: EOMI, PERRL ENT: Present: mucous membranes moist - *Routine Neck Exam Present: supple. Absent: lymphadenopathy - *Routine Respiratory Exam Present: CTA bilaterally - *Routine Cardiovascular Exam Present: RRR - *Routine Abdominal Exam Present: soft, normoactive bowel sounds, tenderness Comments: Patient has a low midline scar. He has significant tenderness with guarding in the right upper quadrant with a positive Buchanan sign. - *Routine Extremities Exam Absent: cyanosis, clubbing, edema - *Routine Skin Exam Present: warm. Absent: rash - *Routine Neurological Exam Present: alert, oriented X3 - Detailed Eye Exam Eyelids: Left normal inspection Results - Labs 05/24/19 12:00 05/24/19 12:00 Laboratory Results - last 24 hr 05/24/19 12:00: WBC 13.4 H, RBC 5.64, Hgb 15.3, Hct 47.1, MCV 83.6, MCH 27.1, MCHC 32.4, RDW 14.5, Plt Count 274, MPV 8.4, Neut % (Auto) 74.4, Lymph % (Auto) 15.6, [place] % (Auto) 6.2, Eos % (Auto) 3.3, Baso % (Auto) 0.6, Neut # (Auto) 10.0 H, Lymph # (Auto) 2.1, [place] # (Auto) 0.8, Eos # (Auto) 0.4, Baso # (Auto) 0.1 05/24/19 12:00: Sodium 131 L, Potassium 4.4, Chloride 97 L, Carbon Dioxide 20 L, Anion Gap 18.4 H, BUN 24 H, Creatinine 1.20, Estimated Creat Clear 78, Estimated GFR 64, Est GFR ( Amer) 78, Glucose 183 H, Calcium 9.9, Total Bilirubin 0.9, AST 115 H, ALT 133 H, Alkaline Phosphatase 129 H, Total Protein 7.9, Albumin 4.3, Globulin 3.6 H, Albumin/Globulin Ratio 1.2, Amylase 61 05/24/19 12:00: Lipase 133 Assessment and Plan - Assessment and plan all Dx Assessment and Plan for all problems:: Lab work has been ordered and is pending. Patient does have findings consistent with acute cholecystitis. He has been on Plavix. Unfortunately this does increase his bleeding risk. However, given his clinical scenario his procedure will not be a little be delayed for many days to allow platelet function to recover. Tentatively will plan for initiation of intravenous antibiotics and laparoscopic with possibly open cholecystectomy tomorrow. This is somewhat more complicated as well due to the previous mesh placement and potential adhesions.
--- NOTE | 2019-05-24 17:17 | History & Physical Report ---
*Admission Date: 05/24/19 *Chief complaint: Abdominal pain *History of present illness: 48-year-old male with coronary artery disease and diabetes was initially seen in my office on May 23 with complaints of 5 days of abdominal pain with inability to eat. He was tolerating liquids. Patient denied fevers at that time. His exam was significant for abdominal tenderness primarily above the umbilicus and most severe in the epigastrium and right upper quadrant with firmness in the right upper quadrant as well. Review of records showed a known gallstone identified on previous CT scans patient was scheduled for an outpatient ultrasound today of the abdomen which revealed findings of acute on chronic cholecystitis. The previously seen gallstone was seen once again on ultrasound and patient's gallbladder was distended. Patient had labs performed through my office yesterday as well and white blood cell count returned at 19,000 with mild elevation in transaminases. Decision was made to admit the patient with diagnosis of acute cholecystitis. Patient has been admitted and surgical consultation has been obtained. [facility] History I have reviewed the patient's past medical history: Yes Medical History: Reports:: Coronary Artery Disease, Diabetes Mellitus Type 2, Hyperlipidemia, Hypertension, MRSA, Myocardial Infarction Denies:: Cancer, Diabetes Mellitus Type 1, Internal Pacemaker *Have you ever received a pneumonia vaccine?: Yes *Have you received a flu vaccine this season?: Yes Other Medical History: Reports: Arthritis, Thyroid Disease Other Surgeries: Yes: Cardiac Catheterization, Hernia Repair. No: Pacemaker Amputation: No Fractures: No - *Social History Educational Level: Attended Grade School Smoking Status: Current every day smoker Tobacco Type: cigarettes # Packs/Day (cigarettes): 1 Alcohol Intake: never *Occupational Status:: employed Housing: house Household Members: spouse *Travel in the last 8 weeks: None Family Hx:: Coronary Artery Disease, Diabetes, Heart Attack, Hyperlipidemia, Hypertension, Thyroid Disorder Review of Systems - Constitutional Reports lack of energy, Denies body ache(s), Denies chills - *Cardiovascular Denies chest pain, Denies chest pain at rest - *Respiratory Denies change in phlegm color, Denies chest congestion, Denies cough, Denies shortness of breath - *Gastrointestinal Reports abdominal pain, Reports bloating, Reports change in bowel habits, Reports constipation, Reports heartburn, Reports feeling full early, Reports nausea, Denies difficulty swallowing, Denies bright, red blood in stools, Denies loose stools, Denies black, tarry stools - *Genitourinary Denies difficulty urinating Meds Home Medications Medication Instructions Recorded Confirmed Type Clopidogrel Bisulfate [Plavix 75mg 75 mg PO DAILY 04/27/19 05/24/19 History Tab] Cyclobenzaprine HCl 10 mg PO HS 04/27/19 05/24/19 History [Cyclobenzaprine 10mg Tab] Duloxetine HCl 30 mg PO HS 04/27/19 05/24/19 History Empagliflozin [Jardiance] 10 mg PO HS 04/27/19 05/24/19 History Ezetimibe 10 mg PO DAILY 04/27/19 05/24/19 History Isosorbide Mononitrate [Isosorbide 120 mg PO DAILY 04/27/19 05/24/19 History Mononitrate ER] Levothyroxine Sodium 125 mcg PO DAILY 04/27/19 05/24/19 History [Levothyroxine 125mcg (0.125mg) Tab] Metformin HCl [Metformin 1000mg 1,000 mg PO BID 04/27/19 05/24/19 History Tablets] Oxycodone HCl/Acetaminophen 1 tab PO QID PRN 04/27/19 05/24/19 History [Percocet 10-325 mg Tablet] Pantoprazole Sodium [Protonix 40mg 40 mg PO DAILY 04/27/19 05/24/19 History tablet] Rosuvastatin Calcium 40 mg PO HS 04/27/19 05/24/19 History bisoproloL fumarate [Bisoprolol 5 mg PO DAILY 04/27/19 05/24/19 History Fumarate] glyBURIDE [Diabeta 5mg tablet] 5 mg PO BID 04/27/19 05/24/19 History lisinopriL [Lisinopril 2.5mg Tab] 2.5 mg PO HS 04/27/19 05/24/19 History Nitroglycerin 0.4 mg SL NEEDED PRN 04/28/19 05/24/19 History Aspirin [Aspirin 81mg EC Tab] 81 mg PO DAILY 04/29/19 05/24/19 History gabapentin 800 mg tablet 800 mg PO TID tab 05/09/19 05/24/19 History Fluticasone/Vilanterol [Breo 1 puff IH DAILY 05/24/19 05/24/19 History Ellipta 100-25 Mcg INH] Allergies Allergy/AdvReac Type Severity Reaction Status Date / Time No Known Allergies Allergy Verified 05/09/19 10:30 Exam Vital signs and Labs for Last 24 Hours: Temp Pulse Resp BP Pulse Ox 98.1 F 85 16 125/82 97 05/24/19 16:00 05/24/19 16:00 05/24/19 16:00 05/24/19 16:00 05/24/19 16:00 Laboratory Results - last 24 hr 05/24/19 12:00: WBC 13.4 H, RBC 5.64, Hgb 15.3, Hct 47.1, MCV 83.6, MCH 27.1, MCHC 32.4, RDW 14.5, Plt Count 274, MPV 8.4, Neut % (Auto) 74.4, Lymph % (Auto) 15.6, [place] % (Auto) 6.2, Eos % (Auto) 3.3, Baso % (Auto) 0.6, Neut # (Auto) 10.0 H, Lymph # (Auto) 2.1, [place] # (Auto) 0.8, Eos # (Auto) 0.4, Baso # (Auto) 0.1 05/24/19 12:00: Sodium 131 L, Potassium 4.4, Chloride 97 L, Carbon Dioxide 20 L, Anion Gap 18.4 H, BUN 24 H, Creatinine 1.20, Estimated Creat Clear 78, Estimated GFR 64, Est GFR ( Amer) 78, Glucose 183 H, Calcium 9.9, Total Bilirubin 0.9, AST 115 H, ALT 133 H, Alkaline Phosphatase 129 H, Total Protein 7.9, Albumin 4.3, Globulin 3.6 H, Albumin/Globulin Ratio 1.2, Amylase 61 05/24/19 12:00: Lipase 133 I & O for Last 24 hours: Intake & Output 05/22/19 05/23/19 05/24/19 05/25/19 11:59 11:59 11:59 11:59 Weight 162 lb 6 oz Narrative: At present patient is laying in bed and appears comfortable. HEENT exam reveals a normal scalp. Pupils are reactive to light. External ears are normal. Oropharynx is moist. Neck is supple and without lymphadenopathy. Lungs are clear to auscultation. Heart has a regular rate and rhythm. Abdomen is soft with right upper quadrant tenderness with deep palpation. Patient has a bruise on the right anterior abdomen that is nontender. Patient has active range of motion in all extremities. There is no pedal edema. Neurologically there is no deficits. Assessment and Plan (1) Acute cholecystitis with chronic cholecystitis Current visit: Yes Status: Acute Category: Medical Code(s): K81.2 - Acute cholecystitis with chronic cholecystitis (2) CAD (coronary artery disease) Current visit: No Status: Chronic Qualifiers: Coronary Disease-Associated Artery/Lesion type: [place] artery [place] vs. transplanted heart: [place] heart Associated angina: without angina Qualified Code(s): I25.10 - Atherosclerotic heart disease of [place] coronary artery without angina pectoris Category: Medical Code(s): I25.10 - Atherosclerotic heart disease of [place] coronary artery without angina pectoris (3) Diabetes mellitus type 2, noninsulin dependent Current visit: No Status: Chronic Category: Medical Code(s): E11.9 - Type 2 diabetes mellitus without complications (4) HLD (hyperlipidemia) Current visit: No Status: Chronic Qualifiers: Hyperlipidemia type: mixed hyperlipidemia Qualified Code(s): E78.2 - Mixed hyperlipidemia Category: Medical Code(s): E78.5 - Hyperlipidemia, unspecified (5) HTN (hypertension) Current visit: No Status: Chronic Qualifiers: Hypertension type: essential hypertension Qualified Code(s): I10 - Essenti al (primary) hypertension Category: Medical Code(s): I10 - Essential (primary) hypertension (6) Personal history of nicotine dependence Current visit: No Status: Chronic Category: Medical Code(s): Z87.891 - Personal history of nicotine dependence (7) Tobacco dependence Current visit: No Status: Chronic Category: Medical Code(s): F17.200 - Nicotine dependence, unspecified, uncomplicated - Assessment and plan all Dx Assessment and Plan for all problems:: Patient has been admitted for acute cholecystitis and placed on IV antibiotics. Surgical consultation was obtained. Patient was evaluated by Dr. Welch of the surgical service and plan is for laparoscopic cholecystectomy in the morning. Patient's aspirin and Plavix will be held. Diabetes will be covered with sliding scale insulin. Postoperatively home medications will be restarted. This evening he will have a liquid diet. He is n.p.o. after midnight
[2019-05-25 07:20] LABS: Albumin Level 3.8 g/dl (3.5-5.0); Albumin/Globulin Ratio 1.1 (1.1-1.8); Anion Gap 14.4 mEq/L (5-15); Bilirubin,Total 0.5 mg/dl (0.2-1.3); Calcium 9.2 mg/dl (8.4-10.2); Globulin 3.4 g/dL (1.3-3.2); Total Protein,Serum 7.2 g/dl (6.3-8.2)
[2019-05-25 07:32] LABS: Basophils # 0.1 K/mm3 (0-0.2); Basophils % 0.8 % (0.1-2.0); Eosinophils # 0.6 K/mm3 (0.0-0.4); Eosinophils % 5.1 % (0.1-12.0); Hematocrit 44.1 % (42.0-52.0); Hemoglobin 14.5 g/dL (14.1-18.0); Lymphocytes # 1.8 K/mm3 (0.7-4.5); Lymphocytes % 16.1 % (10-50); Mean Corpuscular HGB Conc 32.9 g/dL (31.8-35.4); Mean Corpuscular Volume 82.5 fl (80-94); Mean Platelet Volume 8.3 fl (7.4-10.4); Monocytes # 0.7 K/mm3 (0.1-1.0); Monocytes % 6.1 % (1.7-9.3); Neutrophils # 8.2 K/mm3 (1.8-7.8); Platelet Count 291 K/mm3 (142-424); Red Blood Count 5.35 M/mm3 (4.60-6.20); Red Cell Distribution Width 13.3 % (11.5-17.5); White Blood Count 11.4 K/mm3 (4.8-10.8)
--- NOTE | 2019-05-25 07:55 | Progress Note ---
[facility] Anesthesia Checklist - Patient Identification Patient Identification: Arm Band, Verbal (Name & ) - Structural Data Admitted From: Inpatient Planned Operative Procedure/s: lap choly Consent for Planned Operative Procedure(s) Verified: Yes Verified Documents: History and Physical - NPO Status Verified Time NPO: 00:00 - Chart Verification Results Verified: CBC, BMP - Additional verifications Patient : No Anesthesia Reactions: No Hx Blood Transfusions: No Blood Transfusion Reaction: No Cephalosporin Allergy: No Previous Colonoscopy: Yes - Cardiovascular Assessment Heart Sounds: S1 & S2 Pulse Strength: Baseline Pulse Rhythm: Regular Peripheral Edema: No - Airway Assessment C-Spine Mobility Assessed: Yes TMJ Mobility Assessed: Yes Dentition: Good Dentition - Neurological Assessment Level of Consciousness: Awake, Alert, Appropriate Hx Seizures: No Numbness or tingling in extremities: No - Anesthesia Plan Anesthesia Risk discussed: Yes Anesthesia Plan: Verified ASA Class: III Anesthesia Type: General [facility] History I have reviewed the patient's past medical history: Yes Medical History: Reports:: Coronary Artery Disease, Diabetes Mellitus Type 2, Hyperlipidemia, Hypertension, MRSA, Myocardial Infarction Denies:: Cancer, Diabetes Mellitus Type 1, Internal Pacemaker *Have you ever received a pneumonia vaccine?: Yes *Have you received a flu vaccine this season?: Yes Other Medical History: Reports: Arthritis, Thyroid Disease Anesthesia experience/problems:: none Other Surgeries: Yes: Cardiac Catheterization, Hernia Repair. No: Pacemaker Amputation: No Fractures: No - *Social History Educational Level: Attended Grade School Smoking Status: Current every day smoker Tobacco Type: cigarettes # Packs/Day (cigarettes): 1 Alcohol Intake: never Substance Use Type: other *Occupational Status:: employed Housing: house Household Members: spouse *Travel in the last 8 weeks: None Family Hx:: Coronary Artery Disease, Diabetes, Heart Attack, Hyperlipidemia, Hypertension, Thyroid Disorder
--- NOTE | 2019-05-25 07:59 | Progress Note ---
Internal Medicine - PN: Subj *Date: 05/25/19 *Time: 07:58 Interval history: Patient is preparing for surgery this morning. He is continued to have right upper quadrant pain that radiates into the flank. Pain is mostly controlled with intravenous morphine he is received. He has not had any vomiting Exam Vital signs and Labs for Last 24 Hours: Temp Pulse Resp BP Pulse Ox 97.9 F 68 18 138/82 95 05/25/19 04:00 05/25/19 04:00 05/25/19 04:00 05/25/19 04:00 05/25/19 07:36 Laboratory Results - last 24 hr 05/24/19 12:00: WBC 13.4 H, RBC 5.64, Hgb 15.3, Hct 47.1, MCV 83.6, MCH 27.1, MCHC 32.4, RDW 14.5, Plt Count 274, MPV 8.4, Neut % (Auto) 74.4, Lymph % (Auto) 15.6, [place] % (Auto) 6.2, Eos % (Auto) 3.3, Baso % (Auto) 0.6, Neut # (Auto) 10.0 H, Lymph # (Auto) 2.1, [place] # (Auto) 0.8, Eos # (Auto) 0.4, Baso # (Auto) 0.1 05/24/19 12:00: Sodium 131 L, Potassium 4.4, Chloride 97 L, Carbon Dioxide 20 L, Anion Gap 18.4 H, BUN 24 H, Creatinine 1.20, Estimated Creat Clear 78, Estimated GFR 64, Est GFR ( Amer) 78, Glucose 183 H, Calcium 9.9, Total Bilirubin 0.9, AST 115 H, ALT 133 H, Alkaline Phosphatase 129 H, Total Protein 7.9, Albumin 4.3, Globulin 3.6 H, Albumin/Globulin Ratio 1.2, Amylase 61 05/24/19 12:00: Lipase 133 05/24/19 20:15: POC Glucose 213 H 05/25/19 05:17: POC Glucose 88 05/25/19 06:50: WBC 11.4 H, RBC 5.35, Hgb 14.5, Hct 44.1, MCV 82.5, MCH 27.1, MCHC 32.9, RDW 13.3, Plt Count 291, MPV 8.3, Neut % (Auto) 72.0, Lymph % (Auto) 16.1, [place] % (Auto) 6.1, Eos % (Auto) 5.1, Baso % (Auto) 0.8, Neut # (Auto) 8.2 H, Lymph # (Auto) 1.8, [place] # (Auto) 0.7, Eos # (Auto) 0.6 H, Baso # (Auto) 0.1 05/25/19 06:50: Sodium 137, Potassium 4.4, Chloride 101, Carbon Dioxide 26 D, Anion Gap 14.4, BUN 15 D, Creatinine 0.90 D, Estimated Creat Clear 103, Estimated GFR 90, Est GFR ( Amer) 109 D, Glucose 94 D, Calcium 9.2, Total Bilirubin 0.5, AST 93 H, ALT 137 H, Alkaline Phosphatase 122, Total Protein 7.2, Albumin 3.8 D, Globulin 3.4 H, Albumin/Globulin Ratio 1.1 I & O for Last 24 hours: Intake & Output 05/22/19 05/23/19 05/24/19 05/25/19 11:59 11:59 11:59 11:59 Intake Total 2975 / 2975 Balance 2975 / 2975 Weight 162 lb 6 oz 162 lb 7 oz Narrative: Patient is in no distress. There is no scleral icterus. Oropharynx is moist. Lungs are clear. Heart has a regular rate and rhythm. Abdomen is soft with right upper quadrant tenderness to palpation. Bowel sounds are present Assessment and Plan (1) Acute cholecystitis with chronic cholecystitis Current visit: Yes Status: Acute Category: Medical Code(s): K81.2 - Acute cholecystitis with chronic cholecystitis (2) CAD (coronary artery disease) Current visit: No Status: Chronic Qualifiers: Coronary Disease-Associated Artery/Lesion type: [place] artery [place] vs. transplanted heart: [place] heart Associated angina: without angina Qualified Code(s): I25.10 - Atherosclerotic heart disease of [place] coronary artery without angina pectoris Category: Medical Code(s): I25.10 - Atherosclerotic heart disease of [place] coronary artery without angina pectoris (3) Diabetes mellitus type 2, noninsulin dependent Current visit: No Status: Chronic Category: Medical Code(s): E11.9 - Type 2 diabetes mellitus without complications (4) HLD (hyperlipidemia) Current visit: No Status: Chronic Qualifiers: Hyperlipidemia type: mixed hyperlipidemia Qualified Code(s): E78.2 - Mixed hyperlipidemia Category: Medical Code(s): E78.5 - Hyperlipidemia, unspecified (5) HTN (hypertension) Current visit: No Status: Chronic Qualifiers: Hypertension type: essential hypertension Qualified Code(s): I10 - Essential (primary) hypertension Category: Medical Code(s): I10 - Essential (primary) hypertension (6) Personal history of nicotine dependence Current visit: No Status: Chronic Category: Medical Code(s): Z87.891 - Personal history of nicotine dependence (7) Tobacco dependence Current visit: No Status: Chronic Category: Medical Code(s): F17.200 - Nicotine dependence, unspecified, uncomplicated - Assessment and plan all Dx Assessment and Plan for all problems:: Surgery today by Dr. Welch. I have spoken with the patient regarding his length of stay and how that is dependent upon how his surgery goes
--- NOTE | 2019-05-25 12:51 | Operative Note ---
Date of procedure: 05/25/19 Pre-op Diagnosis:: Acute cholecystitis Post-op Diagnosis:: Same Procedure performed:: Laparoscopic cholecystectomy Surgeon:: Ezequiel Welch MD APPRENTICE PAINTER HAND:: Pipe Charles Anesthesia: GETMarlin Estimated blood loss (mL): 750 Clinical Note:: Patient is a pleasant 48-year-old white male. He had previously, greater than 10 years ago, underwent sigmoid colon resection for recurrent refractory diverticulitis. He did develop several incisional hernias and required laparoscopic ventral hernia repair with placement of 21 x 15 cm Bard [employer] mesh several years ago. He does have a history of coronary artery disease and has had previous stents placed and is on Plavix. Several weeks ago he had developed some chest pressure and underwent cardiac evaluation which revealed no cardiac etiology. Recently over the past several days he is developed progressively severe right upper quadrant pain with radiation around to his flank. He was scheduled for an outpatient gallbladder ultrasound yesterday morning which revealed findings consistent with acute cholecystitis. Given the patient's symptomatology and sonographic findings he was admitted for inpatient management and surgical consultation was obtained. Arrangements were made for cholecystectomy the following morning. Operative findings:: He had extensive intra-abdominal adhesions from previous hernia repair. He had a severely inflamed gallbladder with acute on chronic inflammation. Operative note:: Patient was taken to the operating room. He was given preoperative intravenous antibiotic. In the operating room he was placed in a supine position. General anesthesia was induced via endotracheal tube. Abdomen was prepped and draped in the standard surgical fashion. Through a left subcostal incision, due to the fact that he had extensive abdominal hernia surgery in the past, optical trocar was carefully inserted into the abdomen and CO2 pneumoperitoneum was achieved to 15 mmHg. Laparoscope was inserted and omental adhesions were encountered in the mid abdomen. This was due to previous ventral hernia repair. There was a region free of adhesions in the left lower quadrant and 5 mm trocar was inserted at this location. Using blunt dissection with some Metzenbaum dissection adhesions were taken down from the anterior abdominal wall. Ultimately a 10 mm trocar was inserted in the epigastrium and a couple of 5 mm trochars were inserted in the right upper abdomen. 10 mm trocar was not placed through the mesh but was able to be placed lateral to the mesh under laparoscopic visualization in the left mid abdominal region. There appeared to be extensive inflammatory response around the gallbladder. Gallbladder was noted to be extremely tense and distended. Laparoscopic aspirator was then inserted into the apex at the fundus of the gallbladder and the gallbladder was aspirated. Fluid appeared initially mucousy consistent with hydropic gallbladder and then somewhat purulent. Gallbladder was grasped retracted anteriorly. There were acute on chronic dense omental adhesions to the gallbladder and to the adjacent liver. These were taken down with careful blunt dissection with some use of HELEN ultrasonic robotic brody to the adhesions to the liver. Dissection toward the neck of the gallbladder was quite difficult due to the established inflammatory response. There were some large stones impacted in the neck of the gallbladder. Please note that due to the inflammatory response and due to his chronic antiplatelet agents there was some oozing from the surrounding tissues. Ultimately after prolonged dissection the cystic artery and cystic duct were identified. Cystic duct was clipped with several hemoclips and then sharply divided. Cystic artery was carefully coagulated in a couple of locations with HELEN ultrasonic harmonic brody and then divided. The gallbladder was dissected free from the liver in a retrograde fashion using HELEN ultrasonic robotic brody with some blunt dissection. Gallbladder was markedly inflamed and posterior wall of the gallbladder showed evidence of some possible focal necrosis. The gallbladder was placed within an Endo Catch retrieval device and removed from the peritoneal cavity via the trocar site to the left of the umbilicus which required some extension of the fascial incision for delivery. Gallbladder fossa was inspected. Blood was evacuated using suction marking clerk. Some use of electrocautery was used to ensure hemostasis. Nearing the completion of the procedure there was noted to be active bleeding from near the christi hepatis. A Surgicel was inserted and pressure was held as the surrounding blood was evacuated. There was some concern initially that this could be hepatic artery or portal vein. After several minutes the Surgicel was removed. Thorough irrigation and suctioning was performed of the area. The cystic artery then showed some evidence of hemorrhage and this was multiply clipped. Additional prolonged observation was carried out and there was no additional bleeding. There was no evidence of any definite appreciable ischemia of the hepatic parenchyma. Additional irrigation was performed for a total of approximately 5 L of irrigation. There appeared to be good hemostasis. Trochars were then removed as CO2 pneumoperitoneum was evacuated. Fascia at the 10 mm left abdominal trocar site was closed with several interrupted 0 Ethibond sutures. 0 Ethibond suture was placed in the epigastric 10 mm trocar site. Local anesthetic was infiltrated into the trocar sites. Skin incisions were closed with 4-0 Monocryl in a subcuticular fashion. Steri-Strips and dressings were applied. Operative duration approximately 3-1/2 hours Condition: stable Disposition: PACU Complications:: None immediately apparent
--- NOTE | 2019-05-25 12:53 | Progress Note ---
[facility] Anesthesia Record Part I Intake, IV Amount: 1,900 Estimated blood loss (mL): 750 Urine output (mL): 0 Blood Products used (#): none Blood Pressure: 137/84 SaO2: 93 Pulse Rate: 92 Respiratory Rate: 20 Temperature: 97.5 F Patient is:: Drowsy, Stable Stable to PACU at:: 12:45
[2019-05-25 13:19] LABS: Hemoglobin 13.1 g/dL (14.1-18.0)
[2019-05-25 18:07] LABS: Hematocrit 40.4 % (42.0-52.0); Hemoglobin 12.9 g/dL (14.1-18.0)
[2019-05-26 06:02] LABS: Basophils % 0.4 % (0.1-2.0); Eosinophils # 0.1 K/mm3 (0.0-0.4); Eosinophils % 0.6 % (0.1-12.0); Hematocrit 36.5 % (42.0-52.0); Hemoglobin 11.7 g/dL (14.1-18.0); Lymphocytes # 1.7 K/mm3 (0.7-4.5); Lymphocytes % 15.4 % (10-50); Mean Corpuscular Volume 84.9 fl (80-94); Mean Platelet Volume 8.3 fl (7.4-10.4); Monocytes # 0.7 K/mm3 (0.1-1.0); Monocytes % 6.3 % (1.7-9.3); Neutrophils # 8.3 K/mm3 (1.8-7.8); Neutrophils % 77.4 % (37.0-80.0); Platelet Count 275 K/mm3 (142-424); Red Cell Distribution Width 13.3 % (11.5-17.5); White Blood Count 10.8 K/mm3 (4.8-10.8)
[2019-05-26 06:12] LABS: Bilirubin,Total 0.5 mg/dl (0.2-1.3)
[2019-05-26 06:13] LABS: Albumin Level 3.3 g/dl (3.5-5.0); Albumin/Globulin Ratio 1.1 (1.1-1.8); Anion Gap 13.5 mEq/L (5-15); Calcium 8.8 mg/dl (8.4-10.2); Total Protein,Serum 6.3 g/dl (6.3-8.2)
--- NOTE | 2019-05-26 07:51 | Progress Note ---
Subjective Narrative: Patient complains of abdominal soreness. This is more diffuse. Vital signs have been within normal limits other than a brief episode of postoperative tachycardia. Patient has diminished appetite but is tolerating clear liquids. Exam Vital signs and Labs for Last 24 Hours: Temp Pulse Resp BP Pulse Ox 98.4 F 92 H 20 115/78 95 05/26/19 04:00 05/26/19 06:00 05/26/19 06:00 05/26/19 06:00 05/26/19 06:00 Laboratory Results - last 24 hr 05/25/19 12:49: POC Glucose 146 H 05/25/19 13:11: Hgb 13.1 L, Hct 40.0 L 05/25/19 16:47: POC Glucose 141 H 05/25/19 17:53: Hgb 12.9 L, Hct 40.4 L 05/25/19 21:22: POC Glucose 210 H 05/26/19 05:45: WBC 10.8, RBC 4.30 L, Hgb 11.7 L, Hct 36.5 L, MCV 84.9, MCH 27.1, MCHC 32.0, RDW 13.3, Plt Count 275, MPV 8.3, Neut % (Auto) 77.4, Lymph % (Auto) 15.4, [place] % (Auto) 6.3, Eos % (Auto) 0.6, Baso % (Auto) 0.4, Neut # (Auto) 8.3 H, Lymph # (Auto) 1.7, [place] # (Auto) 0.7, Eos # (Auto) 0.1, Baso # (Auto) 0.0 05/26/19 05:45: Sodium 133 L, Potassium 4.5, Chloride 101, Carbon Dioxide 23, Anion Gap 13.5, BUN 10 D, Creatinine 0.90, Estimated Creat Clear 104, Estimated GFR 90, Est GFR ( Amer) 109, Glucose 107 H, Calcium 8.8, Total Bilirubin 0.5, AST 85 H, ALT 117 H, Alkaline Phosphatase 112, Total Protein 6.3, Albumin 3.3 L D, Globulin 3.0, Albumin/Globulin Ratio 1.1 05/26/19 06:19: POC Glucose 121 H I & O for Last 24 hours: Intake & Output 05/23/19 05/24/19 05/25/19 05/26/19 11:59 11:59 11:59 11:59 Intake Total 2975 / 2975 3929 / 3929 Output Total 1550 / 1550 Balance 2975 / 2975 2379 / 2379 Weight 162 lb 6 oz 162 lb 7 oz 163 lb 7 oz - *Routine Abdominal Exam Present: soft, tenderness Comments: He has some diffuse tenderness. The trocar sites are clean dry and intact. Progress Note: A&P (1) Acute cholecystitis with chronic cholecystitis Status: Acute Current Visit: Yes (2) CAD (coronary artery disease) Status: Chronic Current Visit: No (3) Diabetes mellitus type 2, noninsulin dependent Status: Chronic Current Visit: No (4) HLD (hyperlipidemia) Status: Chronic Current Visit: No (5) HTN (hypertension) Status: Chronic Current Visit: No (6) Personal history of nicotine dependence Status: Chronic Current Visit: No (7) Tobacco dependence Status: Chronic Current Visit: No Assessment and Plan for All Diagnoses:: Advance to full liquid diet. Start oral pain medication and use morphine for breakthrough. Continue to monitor closely.
--- NOTE | 2019-05-26 07:54 | Progress Note ---
Internal Medicine - PN: Subj *Date: 05/26/19 *Time: 07:51 Interval history: Patient is post op day 1 from [facility]. His appetite is poor. He reports abdominal soreness. His last bowel movement was MondayMay 20. Exam Vital signs and Labs for Last 24 Hours: Temp Pulse Resp BP Pulse Ox 98.4 F 92 H 20 115/78 95 05/26/19 04:00 05/26/19 06:00 05/26/19 06:00 05/26/19 06:00 05/26/19 06:00 Laboratory Results - last 24 hr 05/25/19 12:49: POC Glucose 146 H 05/25/19 13:11: Hgb 13.1 L, Hct 40.0 L 05/25/19 16:47: POC Glucose 141 H 05/25/19 17:53: Hgb 12.9 L, Hct 40.4 L 05/25/19 21:22: POC Glucose 210 H 05/26/19 05:45: WBC 10.8, RBC 4.30 L, Hgb 11.7 L, Hct 36.5 L, MCV 84.9, MCH 2 7.1, MCHC 32.0, RDW 13.3, Plt Count 275, MPV 8.3, Neut % (Auto) 77.4, Lymph % (Auto) 15.4, [place] % (Auto) 6.3, Eos % (Auto) 0.6, Baso % (Auto) 0.4, Neut # (Auto) 8.3 H, Lymph # (Auto) 1.7, [place] # (Auto) 0.7, Eos # (Auto) 0.1, Baso # (Auto) 0.0 05/26/19 05:45: Sodium 133 L, Potassium 4.5, Chloride 101, Carbon Dioxide 23, Anion Gap 13.5, BUN 10 D, Creatinine 0.90, Estimated Creat Clear 104, Estimated GFR 90, Est GFR ( Amer) 109, Glucose 107 H, Calcium 8.8, Total Bilirubin 0.5, AST 85 H, ALT 117 H, Alkaline Phosphatase 112, Total Protein 6.3, Albumin 3.3 L D, Globulin 3.0, Albumin/Globulin Ratio 1.1 05/26/19 06:19: POC Glucose 121 H I & O for Last 24 hours: Intake & Output 05/23/19 05/24/19 05/25/19 05/26/19 11:59 11:59 11:59 11:59 Intake Total 2975 / 2975 3929 / 3929 Output Total 1550 / 1550 Balance 2975 / 2975 2379 / 2379 Weight 162 lb 6 oz 162 lb 7 oz 163 lb 7 oz - Constitutional no acute distress - *Routine Respiratory Exam Present: CTA bilaterally - *Routine Cardiovascular Exam Present: RRR, Normal S1, Normal S2 - *Routine Abdominal Exam Present: soft, tenderness (left lower quadrant). Absent: distended, rebound, guarding Assessment and Plan (1) Acute cholecystitis with chronic cholecystitis Current visit: Yes Status: Resolved Category: Medical Code(s): K81.2 - Acute cholecystitis with chronic cholecystitis (2) CAD (coronary artery disease) Current visit: No Status: Chronic Qualifiers: Coronary Disease-Associated Artery/Lesion type: [place] artery [place] vs. transplanted heart: [place] heart Associated angina: without angina Qualified Code(s): I25.10 - Atherosclerotic heart disease of [place] coronary artery without angina pectoris Category: Medical Code(s): I25.10 - Atherosclerotic heart disease of [place] coronary artery without angina pectoris (3) Diabetes mellitus type 2, noninsulin dependent Current visit: No Status: Chronic Category: Medical Code(s): E11.9 - Type 2 diabetes mellitus without complications (4) HLD (hyperlipidemia) Current visit: No Status: Chronic Qualifiers: Hyperlipidemia type: mixed hyperlipidemia Qualified Code(s): E78.2 - Mixed hyperlipidemia Category: Medical Code(s): E78.5 - Hyperlipidemia, unspecified (5) HTN (hypertension) Current visit: No Status: Chronic Qualifiers: Hypertension type: essential hypertension Qualified Code(s): I10 - Essential (primary) hypertension Category: Medical Code(s): I10 - Essential (primary) hypertension (6) Personal history of nicotine dependence Current visit: No Status: Chronic Category: Medical Code(s): Z87.891 - Personal history of nicotine dependence (7) Tobacco dependence Current visit: No Status: Chronic Category: Medical Code(s): F17.200 - Nicotine dependence, unspecified, uncomplicated - Assessment and plan all Dx Assessment and Plan for all problems:: Restart Home Meds. Ambulate. Diet per Dr. Welch
--- NOTE | 2019-05-26 12:25 | Progress Note ---
[facility] Anesthesia Record Part II Discharge Time: 13:15 Destination: Medical Surgical Department PACU nurse assessment reviewed?: Yes Patient Condition:: Good Anesthesia Complications:: None Swallowing reflex intact?: Yes Cyanosis?: No Blood Pressure: 120/70 Pulse Rate: 84 Temperature: 98.2 F Mental Status: Alert & Oriented Pain level:: 1 Nausea and/or vomitting:: None Intake, IV Amount: 100
[2019-05-26 17:53] LABS: Hematocrit 32.8 % (42.0-52.0); Hemoglobin 10.6 g/dL (14.1-18.0)
[2019-05-27 06:39] LABS: Basophils % 0.6 % (0.1-2.0); Eosinophils # 0.4 K/mm3 (0.0-0.4); Eosinophils % 4.3 % (0.1-12.0); Hematocrit 30.5 % (42.0-52.0); Hemoglobin 9.6 g/dL (14.1-18.0); Lymphocytes # 1.4 K/mm3 (0.7-4.5); Lymphocytes % 18.1 % (10-50); Mean Corpuscular HGB Conc 31.6 g/dL (31.8-35.4); Mean Corpuscular Volume 84.9 fl (80-94); Mean Platelet Volume 7.9 fl (7.4-10.4); Monocytes # 0.5 K/mm3 (0.1-1.0); Monocytes % 6.2 % (1.7-9.3); Neutrophils # 5.7 K/mm3 (1.8-7.8); Neutrophils % 70.9 % (37.0-80.0); Platelet Count 227 K/mm3 (142-424); Red Blood Count 3.59 M/mm3 (4.60-6.20); Red Cell Distribution Width 13.4 % (11.5-17.5)
[2019-05-27 06:45] LABS: Albumin Level 2.8 g/dl (3.5-5.0); Bilirubin,Total 0.5 mg/dl (0.2-1.3); Globulin 2.9 g/dL (1.3-3.2); Total Protein,Serum 5.7 g/dl (6.3-8.2)
[2019-05-27 06:46] LABS: Calcium 8.4 mg/dl (8.4-10.2)
--- NOTE | 2019-05-27 07:13 | Progress Note ---
Subjective Narrative: Patient feels much better. He has been ambulating. His appetite seems to have improved. Exam Vital signs and Labs for Last 24 Hours: Temp Pulse Resp BP Pulse Ox 98.0 F 81 13 104/63 L 96 05/27/19 04:00 05/27/19 06:00 05/27/19 06:00 05/27/19 06:00 05/27/19 06:00 Laboratory Results - last 24 hr 05/26/19 11:50: POC Glucose 287 H 05/26/19 16:53: POC Glucose 233 H 05/26/19 17:45: Hgb 10.6 L, Hct 32.8 L 05/26/19 21:04: POC Glucose 106 05/27/19 05:37: POC Glucose 112 H 05/27/19 05:55: WBC 8.0 D, RBC 3.59 L, Hgb 9.6 L, Hct 30.5 L, MCV 84.9, MCH 26.8 L, MCHC 31.6 L, RDW 13.4, Plt Count 227, MPV 7.9, Neut % (Auto) 70.9, Lymph % (Auto) 18.1, [place] % (Auto) 6.2, Eos % (Auto) 4.3, Baso % (Auto) 0.6, Neut # (Auto) 5.7, Lymph # (Auto) 1.4, [place] # (Auto) 0.5, Eos # (Auto) 0.4, Baso # (Auto) 0.0 05/27/19 05:55: Sodium 135 L, Potassium 4.0, Chloride 103, Carbon Dioxide 27, Anion Gap 9.0, BUN 9, Creatinine 0.80, Estimated Creat Clear 114, Estimated GFR 103, Est GFR ( Amer) 124, Glucose 99, Calcium 8.4, Total Bilirubin 0.5, AST 68 H, ALT 79 H D, Alkaline Phosphatase 104, Total Protein 5.7 L, Albumin 2.8 L D, Globulin 2.9, Albumin/Globulin Ratio 1.0 L I & O for Last 24 hours: Intake & Output 05/24/19 05/25/19 05/26/19 05/27/19 11:59 11:59 11:59 11:59 Intake Total 2975 / 2975 3929 / 3929 3258 / 3258 Output Total 1550 / 1550 1600 / 1600 Balance 2975 / 2975 2379 / 2379 1658 / 1658 Weight 162 lb 6 oz 162 lb 7 oz 163 lb 7 oz 158 lb 9 oz - *Routine Abdominal Exam Present: soft Comments: He has some diffuse expected postoperative tenderness. [place]car sites are clean and intact. Progress Note: A&P (1) Acute cholecystitis with chronic cholecystitis Status: Resolved Current Visit: Yes (2) CAD (coronary artery disease) Status: Chronic Current Visit: No (3) Diabetes mellitus type 2, noninsulin dependent Status: Chronic Current Visit: No (4) HLD (hyperlipidemia) Status: Chronic Current Visit: No (5) HTN (hypertension) Status: Chronic Current Visit: No (6) Personal history of nicotine dependence Status: Chronic Current Visit: No (7) Tobacco dependence Status: Chronic Current Visit: No Assessment and Plan for All Diagnoses:: Patient improving after cholecystectomy with improving liver function test. No evidence of any ongoing bleeding but hemoglobin has shown some decline as would be expected given the operative findings. Plan to recheck hemoglobin and hematocrit this afternoon. If no significant decrease may build to be discharged later today or tomorrow.
[2019-05-27 16:18] LABS: Hemoglobin 10.3 g/dL (14.1-18.0)
--- NOTE | 2019-05-27 16:59 | Discharge Summary ---
General - General Admission date:: 05/24/19 Discharge date: 05/27/19 HPI HPI: 48-year-old male with coronary artery disease and diabetes was initially seen in my office on May 23 with complaints of 5 days of abdominal pain with inability to eat. He was tolerating liquids. Patient denied fevers at that time. His exam was significant for abdominal tenderness primarily above the umbilicus and most severe in the epigastrium and right upper quadrant with firmness in the right upper quadrant as well. Review of records showed a known gallstone identified on previous CT scans patient was scheduled for an outpatient ultrasound today of the abdomen which revealed findings of acute on chronic cholecystitis. The previously seen gallstone was seen once again on ultrasound and patient's gallbladder was distended. Patient had labs performed through my office yesterday as well and white blood cell count returned at 19,000 with mild elevation in transaminases. Decision was made to admit the patient with diagnosis of acute cholecystitis. Patient has been admitted and surgical consultation has been obtained. Hospital Course Hospital Course: Patient was admitted for acute cholecystitis. He was admitted on the afternoon of May 24. Surgical consultation was obtained. Decision was made to take the patient to the OR the following day where he underwent laparoscopic cholecystectomy. The fact that the patient had been taking Plavix for his coronary artery disease up into the day before his admission did complicate all aspects of care, increasing his risk of bleeding. H&H was followed closely postoperatively and did trend down and reached a low of with hemoglobin 9.6. However H&H trended up prior to discharge. Patient's diet was advanced cautiously which he tolerated. Improvement in pain occurred immediately after surgery. After successful advancement of diet, increase in activity level, stabilization of postoperative anemia patient was discharged home on May 27. He will follow-up with Dr. Welch in 1 week Objective Vital signs: Temp Pulse Resp BP Pulse Ox 98.1 F 88 18 104/62 L 91 L 05/27/19 16:00 05/27/19 16:00 05/27/19 16:05/27/19 16:05/27/19 16:00 no acute distress - *Routine Respiratory Exam Present: CTA bilaterally - *Routine Cardiovascular Exam Present: RRR, Normal S1, Normal S2 - *Routine Abdominal Exam Present: soft, normoactive bowel sounds. Absent: tenderness Results Labs on day of discharge: Labs from last 24 hours 05/27/19 05/27/19 05/27/19 16:12 11:41 05:55 WBC RBC Hgb 10.3 L Hct 33.0 L MCV MCH MCHC RDW Plt Count MPV Neut % (Auto) Lymph % (Auto) [place] % (Auto) Eos % (Auto) Baso % (Auto) Neut # (Auto) Lymph # (Auto) [place] # (Auto) Eos # (Auto) Baso # (Auto) Sodium 135 L Potassium 4.0 Chloride 103 Carbon Dioxide 27 Anion Gap 9.0 BUN 9 Creatinine 0.80 Estimated Creat Clear 114 Estimated GFR 103 Est GFR ( Amer) 124 Glucose 99 POC Glucose 105 Calcium 8.4 Total Bilirubin 0.5 AST 68 H ALT 79 H D Alkaline Phosphatase 104 Total Protein 5.7 L Albumin 2.8 L D Globulin 2.9 Albumin/Globulin Ratio 1.0 L 05/27/19 05/27/19 05/26/19 05:55 05:37 21:04 WBC 8.0 D RBC 3.59 L Hgb 9.6 L Hct 30.5 L MCV 84.9 MCH 26.8 L MCHC 31.6 L RDW 13.4 Plt Count 227 MPV 7.9 Neut % (Auto) 70.9 Lymph % (Auto) 18.1 [place] % (Auto) 6.2 Eos % (Auto) 4.3 Baso % (Auto) 0.6 Neut # (Auto) 5.7 Lymph # (Auto) 1.4 [place] # (Auto) 0.5 Eos # (Auto) 0.4 Baso # (Auto) 0.0 Sodium Potassium Chloride Carbon Dioxide Anion Gap BUN Creatinine Estimated Creat Clear Estimated GFR Est GFR ( Amer) Glucose POC Glucose 112 H 106 Calcium Total Bilirubin AST ALT Alkaline Phosphatase Total Protein Albumin Globulin Albumin/Globulin Ratio 05/26/19 05/26/19 17:45 16:53 WBC RBC Hgb 10.6 L Hct 32.8 L MCV MCH MCHC RDW Plt Count MPV Neut % (Auto) Lymph % (Auto) [place] % (Auto) Eos % (Auto) Baso % (Auto) Neut # (Auto) Lymph # (Auto) [place] # (Auto) Eos # (Auto) Baso # (Auto) Sodium Potassium Chloride Carbon Dioxide Anion Gap BUN Creatinine Estimated Creat Clear Estimated GFR Est GFR ( Amer) Glucose POC Glucose 233 H Calcium Total Bilirubin AST ALT Alkaline Phosphatase Total Protein Albumin Globulin Albumin/Globulin Ratio DS: Diagnosis - Discharge Diagnosis (1) Acute cholecystitis with chronic cholecystitis Status: Resolved (2) CAD (coronary artery disease) Status: Chronic (3) Diabetes mellitus type 2, noninsulin dependent Status: Chronic (4) HLD (hyperlipidemia) Status: Chronic (5) HTN (hypertension) Status: Chronic (6) Personal history of nicotine dependence Status: Chronic (7) Tobacco dependence Status: Chronic Discharge Plan - Patient Discharge Instructions DIET: continue same diet Patient Instructions: DI for Cholecystectomy, DI for Surgical Site Infection, DI for Cholecystitis - Follow up Plan Follow up with: Ezequiel Welch MD [Staff Physician] - 1 week (please call for appointment ) Disposition: Home, Self-Retirement Medications: Home Medications Medication Instructions Recorded Confirmed Type Clopidogrel Bisulfate [Plavix 75mg 75 mg PO DAILY 04/27/19 05/24/19 History Tab] Cyclobenzaprine HCl 10 mg PO HS 04/27/19 05/24/19 History [Cyclobenzaprine 10mg Tab] Duloxetine HCl 30 mg PO HS 04/27/19 05/24/19 History Empagliflozin [Jardiance] 10 mg PO HS 04/27/19 05/24/19 History Ezetimibe 10 mg PO DAILY 04/27/19 05/24/19 History Isosorbide Mononitrate [Isosorbide 120 mg PO DAILY 04/27/19 05/24/19 History Mononitrate ER] Levothyroxine Sodium 125 mcg PO DAILY 04/27/19 05/24/19 History [Levothyroxine 125mcg (0.125mg) Tab] Metformin HCl [Metformin 1000mg 1,000 mg PO BID 04/27/19 05/24/19 History Tablets] Oxycodone HCl/Acetaminophen 1 tab PO QID PRN 04/27/19 05/24/19 History [Percocet 10-325 mg Tablet] Pantoprazole Sodium [Protonix 40mg 40 mg PO DAILY 04/27/19 05/24/19 History tablet] Rosuvastatin Calcium 40 mg PO HS 04/27/19 05/24/19 History bisoproloL fumarate [Bisoprolol 5 mg PO DAILY 04/27/19 05/24/19 History Fumarate] glyBURIDE [Diabeta 5mg tablet] 5 mg PO BID 04/27/19 05/24/19 History lisinopriL [Lisinopril 2.5mg Tab] 2.5 mg PO HS 04/27/19 05/24/19 History Nitroglycerin 0.4 mg SL NEEDED PRN 04/28/19 05/24/19 History Aspirin [Aspirin 81mg EC Tab] 81 mg PO DAILY 04/29/19 05/24/19 History gabapentin 800 mg tablet 800 mg PO TID tab 05/09/19 05/24/19 History Fluticasone/Vilanterol [Breo 1 puff IH DAILY 05/24/19 05/24/19 History Ellipta 100-25 Mcg INH] Prescriptions/Medication Reconciliation: Continued gabapentin 800 mg tablet 800 mg PO TID tab Oxycodone HCl/Acetaminophen [Percocet 10-325 mg Tablet] 1 tab PO QID PRN PRN Reason: PAIN Metformin HCl [Metformin 1000mg Tablets] 1,000 mg PO BID Ezetimibe 10 mg PO DAILY Duloxetine HCl 30 mg PO HS Cyclobenzaprine HCl [Cyclobenzaprine 10mg Tab] 10 mg PO HS Clopidogrel Bisulfate [Plavix 75mg Tab] 75 mg PO DAILY bisoproloL fumarate [Bisoprolol Fumarate] 5 mg PO DAILY Nitroglycerin 0.4 mg SL NEEDED PRN PRN Reason: Chest Pain Fluticasone/Vilanterol [Breo Ellipta 100-25 Mcg INH] 1 puff IH DAILY Pantoprazole Sodium [Protonix 40mg tablet] 40 mg PO DAILY Rosuvastatin Calcium 40 mg PO HS lisinopriL [Lisinopril 2.5mg Tab] 2.5 mg PO HS Levothyroxine Sodium [Levothyroxine 125mcg (0.125mg) Tab] 125 mcg PO DAILY Isosorbide Mononitrate [Isosorbide Mononitrate ER] 120 mg PO DAILY glyBURIDE [Diabeta 5mg tablet] 5 mg PO BID Empagliflozin [Jardiance] 10 mg PO HS Aspirin [Aspirin 81mg EC Tab] 81 mg PO DAILY - Problem Reconciliation Problems Reviewed?: Yes
[2019-05-28 10:19] LABS: Hepatitis B Surface Antigen Negative (Negative)
[2019-05-28 11:51] LABS: Hepatitis C Antibody <0.1 s/co ratio (0.0-0.9)
== END 2019-05-27 17:41 | disposition home or self-care (01) ==
LOC: RAD 09:54 → 2ND 09:54
PROVIDERS: ADMIT Family Medicine; ATTEND Family Medicine
CPT/HCPCS: 36415; 76700; 80053; 80074; 82150; 82962; 83690; 85014; 85018; 85025; G0378; J2405

== ENCOUNTER → 2019-06-07 11:22 | Outpatient (CLI) | payer OTHER, SELFPAY ==
[2019-06-07 11:48] LABS: Basophils # 0.1 K/mm3 (0-0.2); Basophils % 0.9 % (0.1-2.0); Eosinophils # 0.5 K/mm3 (0.0-0.4); Eosinophils % 4.2 % (0.1-12.0); Hematocrit 41.2 % (42.0-52.0); Hemoglobin 12.9 g/dL (14.1-18.0); Lymphocytes % 26.9 % (10-50); Mean Corpuscular HGB Conc 31.2 g/dL (31.8-35.4); Mean Corpuscular Hemoglobin 27.3 pg (27.0-31.2); Mean Corpuscular Volume 87.5 fl (80-94); Mean Platelet Volume 7.5 fl (7.4-10.4); Monocytes # 0.6 K/mm3 (0.1-1.0); Neutrophils % 62.9 % (37.0-80.0); Platelet Count 535 K/mm3 (142-424); Red Blood Count 4.71 M/mm3 (4.60-6.20); Red Cell Distribution Width 14.4 % (11.5-17.5)
[2019-06-07 14:49] LABS: Chloride 107 mmol/L (98-107); Potassium 4.7 mmoL/L (3.5-5.1); Sodium 140 mmol/L (136-145)
[2019-06-07 14:52] LABS: Alanine Aminotransferase 44 U/L (12-78); Albumin Level 3.8 g/dl (3.5-5.0); Albumin/Globulin Ratio 1.5 (1.1-1.8); Alkaline Phosphatase 108 U/L (38-126); Anion Gap 13.7 mEq/L (5-15); Aspartate Amino Transferase 33 U/L (17-59); Bilirubin,Total 0.3 mg/dl (0.2-1.3); Blood Urea Nitrogen 16 mg/dl (9-20); Calcium 9.7 mg/dl (8.4-10.2); Carbon Dioxide 24 mmol/L (22.0-30.0); Estimated Glomerular Filt Rate 103 ml/min (>60); GFR (African American) 124 ML/MIN (>60); Globulin 2.6 g/dL (1.3-3.2); Glucose 87 mg/dl (74-100); Total Protein,Serum 6.4 g/dl (6.3-8.2)
== END ==
PROVIDERS: Visit Provider Surgery
DX: K81.2 Acute cholecystitis with chronic cholecystitis (principal)
CPT/HCPCS: 36415; 80053; 85025